=== PATIENT | male | born 1965 ===

== ENCOUNTER 2020-08-07 06:23 | Outpatient (REF) | payer MEDICARE, MEDICAID, SELFPAY ==
[2020-08-07 08:17] LABS: Alanine Aminotransferase 17 U/L (0-40); Albumin Level 4.2 g/dL (3.5-5.0); Alkaline Phosphatase 70 U/L (39-117); Anion Gap 13 (12-20); Aspartate Amino Transferase 16 U/L (5-37); Bilirubin Total 0.4 mg/dL (0.0-1.0); Blood Urea Nitrogen 13 mg/dL (9-16); Carbon Dioxide 29 mmol/L (22-29); Chloride 99 mmol/L (96-108); Cholesterol 130 mg/dL; Estimated Glomerular Filt Rate > 60; Glucose Random 147 mg/dL (60-115); HDL Cholesterol 38 mg/dL; LDL Cholesterol Calculated 72 mg/dl; Sodium 137 mmol/L (135-145); Total Protein 7.2 g/dL (6.5-8.0); Triglycerides 103 mg/dL
[2020-08-07 08:44] LABS: Microalbum/Creatinine Ratio Ur 13.9 ug/mg cr
== END 2020-08-07 06:24 | disposition home or self-care (01) ==
LOC: HO.LAB 06:23
PROVIDERS: PCP Internal Medicine; Visit Provider Nurse Practitioner Gerontology
DX: E11.65 Type 2 diabetes mellitus with hyperglycemia (principal); I10 Essential (primary) hypertension; E78.5 Hyperlipidemia, unspecified; E66.9 Obesity, unspecified
CPT/HCPCS: 80053; 80061; 82043; 99213

== ENCOUNTER → 2020-12-11 10:12 | Outpatient (BNVA) | payer MEDICARE, MEDICAID, SELFPAY | PROVIDERS: PCP Internal Medicine; Visit Provider Nurse Practitioner Gerontology | DX: Z13.89 Encounter for screening for other disorder (principal) | CPT/HCPCS: Q3014 ==

== ENCOUNTER 2021-03-08 06:41 | Outpatient (REF) | payer MEDICARE, MEDICAID, SELFPAY ==
[2021-03-08 08:09] LABS: Estimated Average Glucose 260 mg/dL; Hemoglobin A1c % 10.7 %
== END 2021-03-08 06:42 | disposition home or self-care (01) ==
LOC: HO.LAB 06:41
PROVIDERS: PCP Internal Medicine; Visit Provider Nurse Practitioner Gerontology
DX: E11.65 Type 2 diabetes mellitus with hyperglycemia (principal)
CPT/HCPCS: 36415; 83036

== ENCOUNTER → 2021-03-12 10:34 | Outpatient (BNVA) | payer MEDICARE, MEDICAID, SELFPAY | PROVIDERS: PCP Internal Medicine; Visit Provider Nurse Practitioner Gerontology | DX: E11.65 Type 2 diabetes mellitus with hyperglycemia (principal); I10 Essential (primary) hypertension; E78.5 Hyperlipidemia, unspecified; E66.9 Obesity, unspecified | CPT/HCPCS: 82947; 99212 ==

== ENCOUNTER → 2021-04-09 07:23 | Outpatient (BNVA) | payer MEDICARE, MEDICAID, SELFPAY | PROVIDERS: PCP Internal Medicine; Visit Provider Nurse Practitioner Gerontology | DX: E11.65 Type 2 diabetes mellitus with hyperglycemia (principal); I10 Essential (primary) hypertension; E78.5 Hyperlipidemia, unspecified; E66.9 Obesity, unspecified | CPT/HCPCS: 82947; 99212 ==

== ENCOUNTER 2021-06-24 10:29 | Outpatient (REF) | payer MEDICARE, MEDICAID, SELFPAY ==
--- NOTE | ~2021-06-24 | XR_ITS ---
EXAMINATION: XR CHEST CLINICAL INFORMATION: Dyspnea. COMPARISON: Most recent chest radiograph dated 07/18/2014. TECHNIQUE: 2 views of the chest were obtained. FINDINGS: Possible minimal patchy opacity within the right upper lobe. No pleural effusion or pneumothorax. Stable cardiomediastinal silhouette. No acute osseous abnormality. XR/XR chest 2V IMPRESSION: Possible minimal opacity within the right upper lobe which could represent atelectasis versus very early infiltrates.
== END 2021-06-24 10:30 | disposition home or self-care (01) ==
LOC: HO.XRAY 10:29
PROVIDERS: PCP Internal Medicine; Visit Provider Internal Medicine
DX: R06.00 Dyspnea, unspecified (principal)
CPT/HCPCS: 71046

== ENCOUNTER 2021-08-04 15:43 | Outpatient (REF) | payer MEDICARE, MEDICAID, SELFPAY ==
[2021-08-04 16:50] LABS: Hematocrit 38.9 % (42-52); Mean Corpuscular HGB Conc 33.4 g/dl (31.0-36.0); Mean Corpuscular Hemoglobin 28.2 pg (27.0-33.0); Mean Corpuscular Volume 84.4 fL (80-98); Mean Platelet Volume 10.9 fL (9.4-12.4); Platelet Count 327 X10*3/uL (160-400); Red Blood Count 4.61 X10*6/uL (4.60-5.80); Red Cell Distribution Width 14.5 % (11.0-16.0); White Blood Count 10.2 X10*3/uL (4.8-10.8)
[2021-08-04 16:58] LABS: Estimated Average Glucose 166 mg/dL; Hemoglobin A1c % 7.4 %
[2021-08-04 17:26] LABS: Alanine Aminotransferase 19 U/L (0-40); Albumin Level 4.4 g/dL (3.5-5.0); Alkaline Phosphatase 71 U/L (39-117); Anion Gap 14 (12-20); Aspartate Amino Transferase 17 U/L (5-37); Bilirubin Direct 0.2 mg/dL (0.0-0.5); Blood Urea Nitrogen 11 mg/dL (9-16); Calcium 9.7 mg/dL (8.4-10.2); Carbon Dioxide 27 mmol/L (22-29); Chloride 102 mmol/L (96-108); Cholesterol 151 mg/dL; Estimated Glomerular Filt Rate > 60; Glucose Random 132 mg/dL (60-115); HDL Cholesterol 36 mg/dL; LDL Cholesterol Calculated 89 mg/dl; Sodium 139 mmol/L (135-145); Total Protein 7.3 g/dL (6.5-8.0); Triglycerides 130 mg/dL
[2021-08-04 17:35] LABS: Bilirubin Total 0.5 mg/dL (0.0-1.0)
[2021-08-04 17:43] LABS: Thyroid Stimulating Hormone 0.51 uIU/mL (0.32-4.0)
[2021-08-04 18:55] LABS: Appearance Urine CLEAR; Color Urine YELLOW; Glucose Urine UA NEG (NEG); Leukocyte Esterase Urine NEG (NEG); Nitrite Urine NEG (NEG); PH 6.5 (5.0-8.0); Urine Blood NEG (NEG); Urine Ketones NEG (NEG); Urine Protein NEG (NEG-TRACE)
[2021-08-04 19:11] LABS: Creatinine Urine 102.96 mg/dL; Microalbum/Creatinine Ratio Ur 7.7 ug/mg cr
== END 2021-08-04 15:44 | disposition home or self-care (01) ==
LOC: HO.LAB 15:43
PROVIDERS: Visit Provider Internal Medicine
DX: E11.65 Type 2 diabetes mellitus with hyperglycemia (principal)
CPT/HCPCS: 36415; 80048; 80061; 80076; 81003; 82043; 83036; 84443; 85027

== ENCOUNTER → 2021-10-18 11:14 | Outpatient (BNVA) | payer MEDICARE, MEDICAID, SELFPAY | PROVIDERS: PCP Internal Medicine; Visit Provider Nurse Practitioner Gerontology | CPT/HCPCS: Q3014 ==

== ENCOUNTER 2022-01-12 13:59 | Outpatient (REF) | payer MEDICARE, MEDICAID, SELFPAY ==
[2022-01-12 15:20] LABS: Alanine Aminotransferase 24 U/L (0-40); Albumin Level 4.5 g/dL (3.5-5.0); Alkaline Phosphatase 74 U/L (39-117); Anion Gap 11 (12-20); Aspartate Amino Transferase 20 U/L (5-37); Bilirubin Total 0.7 mg/dL (0.0-1.0); Blood Urea Nitrogen 14 mg/dL (9-16); Calcium 10.3 mg/dL (8.4-10.2); Carbon Dioxide 33 mmol/L (22-29); Chloride 98 mmol/L (96-108); Cholesterol 142 mg/dL; Estimated Glomerular Filt Rate > 60; Glucose Fasting 132 mg/dL (60-99); HDL Cholesterol 35 mg/dL; LDL Cholesterol Calculated 83 mg/dl; Potassium 4.8 mmol/L (3.3-5.1); Sodium 137 mmol/L (135-145); Total Protein 7.7 g/dL (6.5-8.0); Triglycerides 121 mg/dL
[2022-01-12 15:42] LABS: Appearance Urine CLEAR; Color Urine YELLOW; Glucose Urine UA NEG (NEG); Leukocyte Esterase Urine NEG (NEG); Nitrite Urine NEG (NEG); Urine Blood NEG (NEG); Urine Ketones NEG (NEG); Urine Protein NEG (NEG-TRACE)
[2022-01-12 16:08] LABS: Creatinine Urine 70.71 mg/dL; Microalbumin Urine < 5.0 mg/L
[2022-01-13 19:37] LABS: LDL Cholesterol Direct 86 mg/dL (<100)
== END 2022-01-12 14:00 | disposition home or self-care (01) ==
LOC: HO.LAB 13:59
PROVIDERS: Absent Provider Internal Medicine; PCP Internal Medicine; Visit Provider Nurse Practitioner Gerontology
DX: E11.65 Type 2 diabetes mellitus with hyperglycemia (principal)
CPT/HCPCS: 36415; 80053; 80061; 81003; 82043; 83721

== ENCOUNTER → 2022-01-17 14:09 | Outpatient (BNVA) | payer MEDICARE, MEDICAID, SELFPAY | PROVIDERS: PCP Internal Medicine; Visit Provider Nurse Practitioner Gerontology | DX: E11.65 Type 2 diabetes mellitus with hyperglycemia (principal); I10 Essential (primary) hypertension; E78.5 Hyperlipidemia, unspecified; E66.9 Obesity, unspecified; Z68.32 Body mass index [BMI] 32.0-32.9, adult; Z79.4 Long term (current) use of insulin | CPT/HCPCS: 82947; 99212 ==

== ENCOUNTER → 2022-04-04 07:39 | Outpatient (BNVA) | payer MEDICARE, MEDICAID, SELFPAY | PROVIDERS: PCP Internal Medicine; Visit Provider Nurse Practitioner Gerontology | DX: E11.65 Type 2 diabetes mellitus with hyperglycemia (principal); E78.5 Hyperlipidemia, unspecified; E66.9 Obesity, unspecified; I10 Essential (primary) hypertension; Z68.32 Body mass index [BMI] 32.0-32.9, adult | CPT/HCPCS: 82947; 83036; 99212 ==

== ENCOUNTER 2022-11-01 13:11 | Outpatient (REF) | payer MEDICARE, MEDICAID, SELFPAY ==
[2022-11-01 14:50] LABS: MANUAL DIFF FLAG NO
[2022-11-01 15:26] LABS: Basophils Absolute Auto 0.1 X10*3/uL (0.0-0.2); Basophils Percent Auto 0.6 % (0-2); Eosinophils Absolute Auto 0.1 X10*3/uL (0.0-0.4); Eosinophils Percent Auto 0.4 % (0-4); Hemoglobin 14.5 g/dl (14.0-18.0); Imm Gran Abs Auto 0.03 X10*3/uL (0.00-0.03); Imm Gran Pct Auto 0.2 % (0.0-0.4); Lymphocytes Absolute Auto 3.4 X10*3/uL (1.2-4.9); Lymphocytes Percent Auto 25.5 % (20-40); Mean Corpuscular Hemoglobin 27.9 pg (27.0-33.0); Mean Corpuscular Volume 84.8 fL (80.0-98.0); Mean Platelet Volume 9.7 fL (9.4-12.4); Monocytes Absolute Auto 0.8 X10*3/uL (0.1-1.2); Monocytes Percent Auto 5.7 % (2-11); Neutrophils Absolute Auto 8.9 x10*3/uL (2.0-8.3); Neutrophils Percent Auto 67.6 % (45-73); Platelet Count 380 X10*3/uL (160-400); Red Blood Count 5.19 X10*6/uL (4.60-5.80); Red Cell Distribution Width 13.6 % (11.0-16.0); White Blood Count 13.2 X10*3/uL (4.8-10.8)
[2022-11-01 16:01] LABS: Erythrocyte Sedimentation Rate 8 MM/HR (0-15)
[2022-11-01 16:07] LABS: C Reactive Protein 0.13 mg/dL (< or = 0.50)
== END 2022-11-01 13:12 | disposition home or self-care (01) ==
LOC: HO.LAB 13:11
PROVIDERS: PCP Internal Medicine; Visit Provider Physician Assistant
DX: F41.9 Anxiety disorder, unspecified (principal); K21.9 Gastro-esophageal reflux disease without esophagitis; R19.5 Other fecal abnormalities
CPT/HCPCS: 36415; 82378; 85025; 85652; 86140; 99202

== ENCOUNTER 2022-11-28 09:18 | Day surgery (SDC) | payer MEDICARE, MEDICAID, SELFPAY ==
[2022-11-22 14:55] VITALS: BMI 30.6
[2022-11-28 09:46] LABS: Glucose, Whole Blood 138 mg/dL (60-115)
[2022-11-28] MEDS: Lactated Ringers 1,000 ML 50 ML IVCONT (09:58)
[2022-11-28 10:00] VITALS: BP 136/56; PULSE 78; RESP 18; TEMP 36.7; O2SAT 96
--- NOTE | 2022-11-28 10:15 | HO.ANESPROP2 ---
HPI - Anesthesia Eval Consult details Narrative: 57 yr old make for colon ca screen . [facility] Active Problems Active Problems: All Active Problems (Updated 11/22/22 @ 14:48 by Silva Carreno RN) Annual physical exam (Acute) Pneumonia (Acute) Dyspnea (Acute) Colon polyps (Acute) Positive colorectal cancer screening using Cologuard test (Acute) Anxiety (Acute) Obesity (BMI 30-39.9) (Acute) GERD (gastroesophageal reflux disease) (Acute) Major depression in partial remission (Acute) Postlaminectomy syndrome, not elsewhere classified (Acute) Type 2 diabetes mellitus with hyperglycemia (Acute) Essential hypertension (Acute) Hyperlipidemia LDL goal <100 (Acute) Obesity (BMI 30.0-34.9) (Acute) Past Medical History Medical History Arthritis of right knee Asthma Essential hypertension GERD (gastroesophageal reflux disease) Hyperlipidemia LDL goal <100 Major depression in partial remission Obesity (BMI 30-39.9) Obesity (BMI 30.0-34.9) Postlaminectomy syndrome, not elsewhere classified Type 2 diabetes mellitus with hyperglycemia Family History Family History Father Heart attack CVD (cardiovascular disease) Mother Diabetes mellitus HTN (hypertension) Maternal Grandmother Throat cancer Maternal Uncle Lung cancer Paternal Uncle Diabetes mellitus Paternal Aunt Diabetes mellitus Brother Substance use disorder Family history of problems with anesthesia: No Surgical History Surgical History History of back surgery History of Problems with Anesthesia: No Social History Social History Household Members: Spouse Housing: Apartment Alcohol intake: current Alcohol intake frequency: holidays/special occasions only Patient Tobacco Use Status: Former Tobacco user Quit Date: 12 years ago Cigarettes Per Day: 10 Years Smoked: 18 e-Cigarette/Vaping Use: Never Used Second Hand Smoke Exposure: No Substance Use Type: Marijuana Substance Use Frequency: Occasionally Are you DNR?: No Advance Directives: No Advance Directives Information Provided: Yes Nutrition Risks: No Nutritional Risk service: No Current occupational status: disabled Cognitive needs: Yes (cane) Hearing needs: No Vision needs: Yes (glasses) Meds Allergies Allergy/AdvReac Type Severity Reaction Status Date / Time dulaglutide [Trulicity] Allergy Intermediate injection Verified 11/28/22 09:56 site reaction canagliflozin [Invokana] AdvReac Intermediate sharp Verified 11/28/22 09:56 pains in low back semaglutide [From Rybelsus] AdvReac Intermediate Diarrhea Verified 11/28/22 09:56 tadalafil [From Cialis] AdvReac Mild upset Verified 11/28/22 09:56 stomach bee sting Allergy Severe Anaphylaxis Uncoded 11/28/22 09:56 Fruits Allergy Intermediate itchy mouth Uncoded 11/28/22 09:56 Active Medications: Current Medications Lactated Ringer's (Lr) 1,000 mls @ 50 mls/hr IVCONT .Q20H VITO Last Admin: 11/28/22 09:58 Dose: 50 mls/hr Home Medications Medication Instructions Recorded Confirmed Last Taken Type aspirin 81 mg tablet,delayed 81 mg PO DAILY 08/07/20 11/22/22 11/23/22 History release Exam Exam Date and Time: November 28, 2022 1015 Height,Weight and Vital Signs: Height 6 ft Weight 102.512 kg Last Vital Signs Temp 98.0 F 11/28/22 10:00 Pulse 78 11/28/22 10:00 Resp 18 11/28/22 10:00 BP 136/56 L 11/28/22 10:00 Pulse Ox 96 11/28/22 10:00 O2 Del Method 11/28/22 10:00 Pertinent Lab Results Pertinent Lab Results: Laboratory Tests 11/28/22 09:42 POC Glucose 138 H Airway Mallampati Class: III TM Dist: >3cm Neck ROM: Full Loose/Missing/Broken Teeth: Yes and Lower Heart: rrr Lungs: cta Assessment and Plan Assessment Anesthesia Assessment: Anesthesia Plan Discussed and Chart Reviewed Final Anesthetic Review Family History of Problems with Anesthesia: No History of Problems with Anesthesia: No NPO: Yes ASA Class: III Final Preanesthetic Review: No Changes in Pt Med Stat, Meds/Allgs Chart Reviewed, Consent Obtained/Reviewed and Anes Risks/Benef Reviewed Patient Risk: Intermediate Procedure Risk: Low Anesthetic Plan Anesthetic Plan: MAC: and Agree w/ Assess. and Plan Disposition: Standard PACU
--- NOTE | 2022-11-28 10:18 | MHC.SHP ---
Pre-Procedural Eval Section A Date of Service: 11/28/22 The History & Physical has been completed within 30 days and I have reviewed it.: Yes Section B Chief Complaint: POsitive cologuard Allergies: Allergies Allergy/AdvReac Type Severity Reaction Status Date / Time dulaglutide [Trulicity] Allergy Intermediate injection Verified 11/28/22 09:56 site reaction canagliflozin [Invokana] AdvReac Intermediate sharp Verified 11/28/22 09:56 pains in low back semaglutide [From Rybelsus] AdvReac Intermediate Diarrhea Verified 11/28/22 09:56 tadalafil [From Cialis] AdvReac Mild upset Verified 11/28/22 09:56 stomach bee sting Allergy Severe Anaphylaxis Uncoded 11/28/22 09:56 Fruits Allergy Intermediate itchy mouth Uncoded 11/28/22 09:56 Plan Diagnosis/Plan: Unchanged I have reviewed the history and physical and performed a pertinent physical examination on my patient. No changes have occurred unless specified. Time Spent With Patient Time: Total time managing care of this patient today ____ minutes.
--- NOTE | 2022-11-28 10:19 | P.OP_ITS ---
Operative Note Operative Note Date of Service: 11/28/22 Narrative: Procedure: Colonoscopy Indication: + FIT test Endoscopist: Patito Draper MD Anesthesia Provider: Dr Mylene Finney Anesthesia type: MAC Instrument: Olympus [id number]-[id number] Consent: Indication, risks vs benefits, and alternatives were discussed with the patient who gave written informed consent to proceed. EKG, pulse, pulse oximetry and blood pressure were monitored throughout the procedure. Please see anesthesia flowsheet. Procedure: The patient was brought to the procedure room and placed in the left lateral decubitus position. IV medications were administered by the anesthesia provider in attendance. A digital rectal exam was performed which was normal. The colonoscope was then inserted through the anus and advanced through the colon to the cecum at 75 cm,and terminal ileum. Mucosa was carefully examined under high definition white light as the instrument was slowly withdrawn in a retrograde panoramic fashion. Retroflexion was performed in ascending colon and rectum. The procedure was not difficult. There were no immediate obvious complications. The quality of the prep was BBPS: 3+3+3 = excellent Withdrawal time 13 minutes. Limitations: No limitations. Findings: Mucosa: Normal to cecum and terminal ileum. Protruding lesions: * 1 sessile polyp of size 5 mm in descending colon. Cold snare polypectomy was performed. The polyp was completely removed and retrieved. * 2 sessile polyp of size 2-3 mm in sigmoid colon. Cold snare polypectomy was performed. The polyps were completely removed and retrieved. * Medium internal hemorrhoids without stigmata of recent bleeding. Impression: 1. Normal colon and terminal ileum mucosa 2. Total of 3 polyps removed from descending, and sigmoid colon. 3. Internal hemorrhoids Recommendations: - Follow path results. - Repeat colonoscopy in 3 years if all polyps are adenoma otherwise 7 years.
[2022-11-28 11:01] VITALS: BP 87/38; PULSE 54; RESP 18; TEMP 36.1; O2SAT 99
[2022-11-28 11:16] VITALS: BP 107/49; PULSE 54; RESP 18; O2SAT 98
[2022-11-28 11:31] VITALS: BP 115/80; PULSE 68; RESP 18; TEMP 37.1; O2SAT 98
== END 2022-11-28 12:02 | disposition home or self-care (01) ==
PROVIDERS: PCP Internal Medicine; Visit Provider Internal Medicine
PROC: 0DJD8ZZ Inspection of Lower Intestinal Tract, Via Natural or Artificial Opening Endoscopic (ICD-10-PCS; CPT 45378; principal; 2022-11-28 10:40)
DX: R19.5 Other fecal abnormalities (principal); D12.4 Benign neoplasm of descending colon; D12.5 Benign neoplasm of sigmoid colon; K64.8 Other hemorrhoids; K21.9 Gastro-esophageal reflux disease without esophagitis; E78.5 Hyperlipidemia, unspecified; J45.909 Unspecified asthma, uncomplicated; F33.41 Major depressive disorder, recurrent, in partial remission; F41.9 Anxiety disorder, unspecified; I10 Essential (primary) hypertension; E66.9 Obesity, unspecified; Z68.30 Body mass index [BMI] 30.0-30.9, adult; E11.65 Type 2 diabetes mellitus with hyperglycemia; Z79.4 Long term (current) use of insulin; Z79.82 Long term (current) use of aspirin; Z79.899 Other long term (current) drug therapy; Z88.8 Allergy status to other drugs, medicaments and biological substances; Z87.891 Personal history of nicotine dependence
CPT/HCPCS: 45385; 82947; 88305

== ENCOUNTER 2023-05-04 08:50 | Outpatient (AMB) | payer MEDICARE, MEDICAID, SELFPAY ==
--- NOTE | 2023-05-04 08:53 | A.OFFPC_ITS ---
Vital Signs 05/04/23 08:55 Height 6 ft Weight 230 lb BMI 31.2 BP 122/70 Blood Pressure Location Lt brachial Position Sitting Pulse 62 Pulse Source Pulse Oximeter Pulse Oximetry (%) 97 Oxygen Delivery Method Room Air Intake Visit Reasons: 3 month f/u Intake Note: Patient is here to follow up on DM, HTN, Hyperlipidemia, . Size Tester Required: No Transfer Controller: Not Required per policy Accompanied by: Self / Same As Patient Allergies dulaglutide [Trulicity] Allergy (Intermediate, Verified 05/04/23 09:40) injection site reaction canagliflozin [Invokana] Adverse Reaction (Intermediate, Verified 05/04/23 09:40) sharp pains in low back semaglutide [From Rybelsus] Adverse Reaction (Intermediate, Verified 05/04/23 09:40) Diarrhea tadalafil [From Cialis] Adverse Reaction (Mild, Verified 05/04/23 09:40) upset stomach bee sting Allergy (Severe, Uncoded 05/04/23 09:40) Anaphylaxis Fruits Allergy (Intermediate, Uncoded 05/04/23 09:40) itchy mouth Medication List - Last Reconciled 05/04/23 by Shane Evans MD albuterol sulfate 90 mcg/actuation (Ventolin HFA) 2 puffs inhalation Q6H PRN 30 days aspirin 81 mg PO DAILY blood sugar diagnostic ([employer] Verio test strips) USE TO TEST BLOOD SUGAR 3 TIMES A DAY bupropion HCl 1 tab PO QAM buspirone 5 mg PO BID glipizide ER 10 mg (2 x 5 mg) PO DAILY insulin degludec (Tresiba FlexTouch U-100 insulin) 21 units subcut BEDTIME lancets ([employer] Delica Lancets) Three times a day lisinopril-hydrochlorothiazide 20-12.5 mg 2 tabs PO DAILY metformin ER 1,000 mg (2 x 500 mg) PO BID naproxen 500 mg PO BID omeprazole 20 mg PO QAM pen needle, diabetic (BD Ultra-Fine Glendy Pen Needle) As directed once daily simvastatin 40 mg PO DAILY trazodone 1 tab PO BEDTIME Tobacco use date assessed: 05/04/23 Dental Screening Dental Screen Date: 05/04/23 Did you have a dental visit in the last 12 months?: No Did you have a dental problem in the last 6 months where you did not have access to dental care?: No Was dental information given to patient?: No HPI 3 month f/u HPI Details 57-year-old male presents to the office to discuss his chronic medical conditions. Since last office visit, patient is feeling better. His blood sugars are better controlled. He would like to reduce the dosage on 1 of his medications. At times he has had lows. Exercising more. Continues to have right shoulder pain and would like to see an orthopedic surgeon. Also reporting persistent left elbow pain for the past month. No fall or injury. Complaining of itching in both ears for the past week. I asked him questions on his depression and anxiety. Patient admits that he still has anger issues and is scheduled for therapy in the fall. REPLACED BY [facility] Medical History Arthritis of right knee Asthma Essential hypertension GERD (gastroesophageal reflux disease) Hyperlipidemia LDL goal <100 Major depression in partial remission Obesity (BMI 30-39.9) Obesity (BMI 30.0-34.9) Postlaminectomy syndrome, not elsewhere classified Type 2 diabetes mellitus with hyperglycemia Surgical History History of back surgery Family History Father Heart attack CVD (cardiovascular disease) Mother Diabetes mellitus HTN (hypertension) Maternal Grandmother Throat cancer Maternal Uncle Lung cancer Paternal Uncle Diabetes mellitus Paternal Aunt Diabetes mellitus Brother Substance use disorder Social History Household Members: Spouse Housing: Apartment Alcohol intake: current Alcohol intake frequency: holidays/special occasions only Patient Tobacco Use Status: Former Tobacco user Quit Date: 12 years ago Cigarettes Per Day: 10 Years Smoked: 18 e-Cigarette/Vaping Use: Never Used Second Hand Smoke Exposure: No Substance Use Type: Marijuana service: No Current occupational status: disabled Cognitive needs: Yes (cane) Hearing needs: No Vision needs: Yes (glasses) Questionnaire Thrive Questionnaire Date Thrive assessed: 01/26/23 HEVER-7 AMB Questionnaire HEVER-7 Date HEVER - 7 assessed: 11/03/22 Source: Developed by Drs. Michael Lanza, Martina Robledo, Sahil Desai and colleagues, with an educational jamey from [employer]. Physical exam (Primary Care) Vital Signs: Last Vital Signs Pulse 62 05/04/23 08:55 BP 122/70 05/04/23 08:55 Pulse Ox 97 05/04/23 08:55 Oxygen Delivery Method Room Air 05/04/23 08:55 Care Plan Goal for BP management: Blood pressure in range. Continue current medications. BMI result Body Mass Index 31.2 BMI Assessment/Plan discussion: High (1 lb per week weight loss suggested.) BMI High, discussed plan: lifestyle, weight reduction and dietary Tobacco/Smoking Status: Tobacco use Status Tobacco use date assessed 05/04/23 05/04/23 09:02 Patient Tobacco Use Status Former Tobacco user 05/04/23 09:02 e-Cigarette/Vaping Use Never Used 05/04/23 09:02 Thrive Assessment: Date of Thrive Assessment Date Thrive assessed 01/26/23 05/04/23 09:02 Advance Care Planning discussion: Exists, not on file Forms completed: Health Care Proxy and MOLST Const General: cooperative, healthy appearing and comfortable HENMT Head: Yes normal to inspection and Yes atraumatic Eyes General: appearance normal, both eyes and all related structures Neck Neck: Yes normal visual inspection and Yes full ROM Chest Chest palpation & inspection: normal inspection of the chest Resp Effort & Inspection: normal respiratory effort Auscultation: clear to auscultation bilaterally Cardio Jugular venous distension: no JVD Palpation: normal PMI Rate: regular rate Heart sounds: S1 normal heart sound present and S2 normal heart sound present GI Palpation (GI): Soft to palpation and No hepatosplenomegaly present Extrem General: Yes normal to inspection and Yes full ROM Results AMB Hemoglobin A1c AMB Hemoglobin A1c 6.4 % Last Edit by ISA Meneses on 05/04/23 09:07 Results Reviewed Results Reviewed: Laboratory Last Values Hgb A1c (Clinic) 6.4 % (4.0-6.0) H 05/04/23 08:53 Assessment and Plan Assessment & Plan (1) Obesity (BMI 30-39.9): Code(s): E66.9 - Obesity, unspecified Plan: Counseling on the importance of diet and exercise done. (2) GERD (gastroesophageal reflux disease): Comment: No acid reflux is not taking a PPI. Code(s): K21.9 - Gastro-esophageal reflux disease without esophagitis Qualifiers: Esophagitis presence: without esophagitis Qualified Code(s): K21.9 - Gastro-esophageal reflux disease without esophagitis (3) Major depression in partial remission: Code(s): F32.4 - Major depressive disorder, single episode, in partial remission Qualifiers: Major depression recurrence: recurrent Qualified Code(s): F33.41 - Major depressive disorder, recurrent, in partial remission Plan: Condition is stable. Continue current treatment. (4) Essential hypertension: Code(s): I10 - Essential (primary) hypertension Plan: Blood pressure is in range. Continue medications. (5) Type 2 diabetes mellitus with hyperglycemia: Code(s): E11.65 - Type 2 diabetes mellitus with hyperglycemia Qualifiers: Diabetes mellitus terminal superintendent insulin use: without terminal superintendent use Qualified Code(s): E11.65 - Type 2 diabetes mellitus with hyperglycemia Plan: A1c is in range. I agreed that he should stop the sulfonylureas. (6) Sprain of right shoulder: Code(s): S43.401A - Unspecified sprain of right shoulder joint, initial encounter Plan: Patient is insisting on an orthopedic appointment. He does not want to go to physical therapy as it has not helped the past. Orders: Orders AMB Hemoglobin A1c Today E11.65 - Type 2 diabetes mellitus with hyperglycemia Referrals Orthopedics Referral S43.401A - Unspecified sprain of right shoulder joint, initial encounter Medications: New hydrocortisone 2.5% 1 appl topical BID PRN 20 grams 0RF skin irritation Discontinued glipizide ER Discontinued Reason: Doctor's Order 10 mg (2 x 5 mg) PO DAILY 60 tabs 7RF E11.65 - Type 2 diabetes mellitus with hyperglycemia Coding Level of Care Code Est Pt Level 4 (72857) Diagnoses Obesity (BMI 30-39.9) E66.9 GERD (gastroesophageal reflux disease) K21.9 Esophagitis presence: without esophagitis Major depression in partial remission F33.41 Major depression recurrence: recurrent Essential hypertension I10 Type 2 diabetes mellitus with hyperglycemia E11.65 Diabetes mellitus correction insulin use: without correction use Sprain of right shoulder S43.401A Additional Codes Vital Signs *Quality* - Advance Care Planning discussion: Exists, not on file ([id number])
[2023-05-04 08:55] VITALS: BP 122/70; PULSE 62; O2SAT 97; BMI 31.2
== END 2023-05-04 09:33 | disposition home or self-care (01) ==
PROVIDERS: Visit Provider Internal Medicine
DX: K21.9 Gastro-esophageal reflux disease without esophagitis (principal); F33.41 Major depressive disorder, recurrent, in partial remission; Z68.31 Body mass index [BMI] 31.0-31.9, adult; E66.9 Obesity, unspecified; I10 Essential (primary) hypertension; E11.65 Type 2 diabetes mellitus with hyperglycemia; S43.401A Unspecified sprain of right shoulder joint, initial encounter; Z71.89 Other specified counseling
CPT/HCPCS: 1123F; 83036; 99214

== ENCOUNTER 2023-05-11 08:25 | Outpatient (REF) | payer MEDICARE, MEDICAID, SELFPAY ==
--- NOTE | ~2023-05-11 | XR_ITS ---
EXAMINATION: XR SHOULDER, RIGHT CLINICAL INFORMATION: Pain. COMPARISON: None available. TECHNIQUE: Two views of the right shoulder. FINDINGS: There is no evidence of acute fracture or dislocation of the right shoulder. Right shoulder joint space is maintained with minimal spurring inferiorly. There is a 4 mm rounded density seen about the superior aspect of the humeral head which may be overlap of region of calcific tendinitis. There is degenerative narrowing with marginal spurring present about the right acromioclavicular joint. No widening of the coracoclavicular space is seen. XR/XR shoulder RT min 2V IMPRESSION: Possible calcific tendinitis of the right shoulder. Degenerative change of the right acromioclavicular joint.
== END 2023-05-11 08:26 | disposition home or self-care (01) ==
LOC: HO.HOSX 08:25
PROVIDERS: Visit Provider Orthopaedic Surgery
DX: M25.511 Pain in right shoulder (principal); M25.811 Other specified joint disorders, right shoulder; R20.0 Anesthesia of skin; Z79.899 Other long term (current) drug therapy
CPT/HCPCS: 73030; 99202

== ENCOUNTER 2023-05-11 12:46 | Outpatient (AMB) | payer MEDICARE, MEDICAID, SELFPAY ==
--- NOTE | 2023-05-11 13:01 | A.OFFVIS_ITS ---
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 extending from his left shoulder to his left hand. The patient states that his symptoms have gotten worse since he fell on ice 3 years ago. He has done physical therapy which aggravated his symptoms. He has also tried Tylenol and anti-inflammatory medici ondina which gave him minimal relief. He has had injections in the past which gave him no relief. The patient reports weakness when lifting his right hand above shoulder height. He states that at times all of the fingers on his left hand will go numb. The patient has difficulty sleeping because of his symptoms. Allergies dulaglutide [Trulicity] Allergy (Intermediate, Verified 05/04/23 09:40) injection site reaction canagliflozin [Invokana] Adverse Reaction (Intermediate, Verified 05/04/23 09:40) sharp pains in low back semaglutide [From Rybelsus] Adverse Reaction (Intermediate, Verified 05/04/23 09:40) Diarrhea tadalafil [From Cialis] Adverse Reaction (Mild, Verified 05/04/23 09:40) upset stomach bee sting Allergy (Severe, Uncoded 05/04/23 09:40) Anaphylaxis Fruits Allergy (Intermediate, Uncoded 05/04/23 09:40) itchy mouth Medication List - Last Reconciled 05/11/23 by Anjum Hunter MD albuterol sulfate 90 mcg/actuation (Ventolin HFA) 2 puffs inhalation Q6H PRN 30 days aspirin 81 mg PO DAILY blood sugar diagnostic ([employer] Verio test strips) USE TO TEST BLOOD SUGAR 3 TIMES A DAY bupropion HCl 1 tab PO QAM buspirone 5 mg PO BID hydrocortisone 2.5% 1 appl topical BID PRN insulin degludec (Tresiba FlexTouch U-100 insulin) 21 units subcut BEDTIME lancets (OneTouch Delica Lancets) Three times a day lisinopril-hydrochlorothiazide 20-12.5 mg 2 tabs PO DAILY metformin ER 1,000 mg (2 x 500 mg) PO BID naproxen 500 mg PO BID omeprazole 20 mg PO QAM pen needle, diabetic (BD Ultra-Fine Glendy Pen Needle) As directed once daily simvastatin 40 mg PO DAILY trazodone 1 tab PO BEDTIME [facility] Medical History Arthritis of right knee Asthma Essential hypertension GERD (gastroesophageal reflux disease) Hyperlipidemia LDL goal <100 Major depression in partial remission Obesity (BMI 30-39.9) Obesity (BMI 30.0-34.9) Postlaminectomy syndrome, not elsewhere classified Type 2 diabetes mellitus with hyperglycemia Surgical History History of back surgery Family History Father Heart attack CVD (cardiovascular disease) Mother Diabetes mellitus HTN (hypertension) Maternal Grandmother Throat cancer Maternal Uncle Lung cancer Paternal Uncle Diabetes mellitus Paternal Aunt Diabetes mellitus Brother Substance use disorder Social History Household Members: Spouse Housing: Apartment Alcohol intake: current Alcohol intake frequency: holidays/special occasions only Patient Tobacco Use Status: Former Tobacco user Quit Date: 12 years ago Cigarettes Per Day: 10 Years Smoked: 18 e-Cigarette/Vaping Use: Never Used Second Hand Smoke Exposure: No Substance Use Type: Marijuana service: No Current occupational status: disabled Cognitive needs: Yes (cane) Hearing needs: No Vision needs: Yes (glasses) Physical Exam Const Other: Well-nourished well-developed very friendly male awake alert and oriented x3 in no acute distress Extrem Other: Bilateral upper extremity examination shows good capillary refill, no skin lesions noted Left upper extremity examination shows mild thenar muscle wasting, decreased sensation light touch along his median nerve distribution, positive Tinel's test over his carpal tunnel Right shoulder examination shows decreased range of motion when compared to his left shoulder, 4/5 strength with supraspinatus testing, positive impingement signs, tenderness over his acromioclavicular joint, no instability Results Reviewed Results Reviewed: X-rays of the patient's right shoulder taken today show severe acromioclavicular joint narrowing, a type 2 acromion, no acute bony abnormalities Assessment & Plan Assessment & Plan (1) Impingement of right shoulder: Code(s): M25.811 - Other specified joint disorders, right shoulder Plan: Mr. Steiner presents with progressively worsening right shoulder pain and weakness due to impingement syndrome, acromioclavicular joint arthritis and possible full-thickness rotator cuff tearing. Thus, I will send him for an MRI of his right shoulder for further evaluation. If he does have a full-thickness rotator cuff tear I will recommend surgical repair to optimize is future functional level. I will also get an EMG evaluation of his left upper extremity to help rule out carpal tunnel syndrome or cervical neuropathy. I will see the patient back once the studies are completed. Feel free to call me at any time should questions regarding his orthopedic management arise. Thank you very much for asking me to see this very friendly gentleman. I spent 22 minutes in reviewing the patient's records and imaging studies, seeing the patient and documenting in the medical record. Orders: Orders XR shoulder RT min 2V Today M25.511 - Pain in right shoulder MR shoulder RT wo con Today M25.519 - Pain in unspecified shoulder NE electromyogram (EMG) Today R20.0 - Anesthesia of skin Quality Reporting (2020) Adult ([facility] 138/12/07/68) Smoking risk assessment performed?: Yes Patient Tobacco Use Status: Former Tobacco user Coding Level of Care Code New Pt Level 2 (44033) Diagnoses Impingement of right shoulder M25.811
[2023-05-11 13:10] VITALS: BMI 31.2
== END 2023-05-11 13:31 | disposition home or self-care (01) ==
PROVIDERS: PCP Internal Medicine; Visit Provider Orthopaedic Surgery
DX: M25.811 Other specified joint disorders, right shoulder (principal)
CPT/HCPCS: 99202

== ENCOUNTER 2023-10-04 10:06 | Outpatient (AMB) | payer MEDICARE, MEDICAID, SELFPAY ==
--- NOTE | 2023-10-04 10:54 | MHC.OFFWIV ---
Intake Vital Signs 10/04/23 10:55 Height 6 ft Weight 228 lb 4 oz BMI 31.0 BP 122/70 Blood Pressure Location Rt brachial Position Sitting Pulse 70 Pulse Source Pulse Oximeter Temp 97.8 F Temp Source Temporal Artery Scan Pulse Oximetry (%) 98 Oxygen Delivery Method Room Air Intake Visit Reasons: EST/right forearm pain (lobby) Intake Note: Pt is here c/o right forearm pain. Pt states he did fall 11 months ago and hurt his forearm but didn't think much of it. Pt states he is now in a lot of pain if he moves his forearm in certain positions. Patient Tobacco Use Status: Former Tobacco user Quit Date: 12 years ago Allergies dulaglutide [Trulicity] Allergy (Intermediate, Verified 10/04/23 10:54) injection site reaction canagliflozin [Invokana] Adverse Reaction (Intermediate, Verified 10/04/23 10:54) sharp pains in low back semaglutide [From Rybelsus] Adverse Reaction (Intermediate, Verified 10/04/23 10:54) Diarrhea tadalafil [From Cialis] Adverse Reaction (Mild, Verified 10/04/23 10:54) upset stomach bee sting Allergy (Severe, Uncoded 10/04/23 10:54) Anaphylaxis Fruits Allergy (Intermediate, Uncoded 10/04/23 10:54) itchy mouth Do you need a note to return to daycare/school/sports/work: No HPI HPI Comments History of Present Illness Details Patient is a 58-year-old male in today for a sick visit. He rides the chief complaint of right elbow and forearm pain that has gotten progressively worse over the past couple months. He states that he did have a fall 11 months ago, but that the pain subsided and he did not get an x-ray. Over the past couple of months he has noticed that his elbow and forearm pain has increased to the point where he feels like he has difficulty taking care of his sister who is wheelchair bound. He has used naproxen with some relief. Denies any numbness tingling to the area. Will obtain x-ray of the right forearm and elbow. Patient has +2 pulses throughout. This injury is unlikely to be a threat to the limb. This is unlikely to be a neurovascular compromise or a venous or arterial occlusion. [facility] Medical History Arthritis of right knee Asthma Essential hypertension GERD (gastroesophageal reflux disease) Hyperlipidemia LDL goal <100 Major depression in partial remission Obesity (BMI 30-39.9) Obesity (BMI 30.0-34.9) Postlaminectomy syndrome, not elsewhere classified Type 2 diabetes mellitus with hyperglycemia Surgical History History of back surgery Family History Father Heart attack CVD (cardiovascular disease) Mother Diabetes mellitus HTN (hypertension) Maternal Grandmother Throat cancer Maternal Uncle Lung cancer Paternal Uncle Diabetes mellitus Paternal Aunt Diabetes mellitus Brother Substance use disorder Social History Household Members: Spouse Housing: Apartment Alcohol intake: current Alcohol intake frequency: holidays/special occasions only Patient Tobacco Use Status: Former Tobacco user Quit Date: 12 years ago Cigarettes Per Day: 10 Years Smoked: 18 e-Cigarette/Vaping Use: Never Used Second Hand Smoke Exposure: No Substance Use Type: Marijuana service: No Current occupational status: disabled Cognitive needs: Yes (cane) Hearing needs: No Vision needs: Yes (glasses) Review of Systems Const Details: Constitutional : No Weight loss, No Fever, No Chills, No Fatigue, No Malaise Cardiovascular : No Chest Pain, No SOB, No Dyspnea on Exertion, No Orthopnea, No Edema, No Palpitations Respiratory : No Cough, No Sputum, No Wheezing Gastrointestinal : No Nausea, No Vomiting, No Diarrhea, No Constipation, No abdominal Pain, No Hematochezia, No Melena Musculoskeletal : Admits right elbow and forearm pain. Skin : No Skin Lesions, No rash Neuro : No Weakness, No Numbness, No Dizziness, No Headache All other systems reviewed and are negative Physical Exam Vital Signs: Last Vital Signs Temp 97.8 F 10/04/23 10:55 Pulse 70 10/04/23 10:55 BP 122/70 10/04/23 10:55 Pulse Ox 98 10/04/23 10:55 Oxygen Delivery Method Room Air 10/04/23 10:55 BMI result Body Mass Index 31.0 Vital signs have been reviewed and are stable Const Other: Appearance: Alert.? Oriented X3.? No acute distress.? CVS: Normal heart rate and rhythm.? Pulses normal.? Respiratory: No respiratory distress.? Breath sounds normal.? Skin: Skin warm and dry.? Normal skin color.? Normal skin turgor.? Extremities: Positive beth test. No obvious deformity. No cracking or crepitus. Patient has full range of motion. Point tenderness to right elbow. Neuro: Oriented X 3.? No motor deficit.? No sensory deficit. CN 2-12 intact Results Reviewed Results Reviewed: Patient had in office x-ray. Will get back to patient with results. Assessment & Plan Assessment & Plan (1) Lateral epicondylitis of right elbow: Comment: Patient will be given meloxicam to be taken as directed. He has been educated on the side effects of these medications. He will also be instructed to use an elbow brace for support during day to be taken off at night. He has been educated on signs of worsening symptoms when to return to the walk-in or when to present to the emergency room. Patient should follow-up with PCP. Code(s): M77.11 - Lateral epicondylitis, right elbow Plan: Take your medications as prescribed. If you were prescribed antibiotics today, it is important that you take your medication to their entirety, do not skip any doses, do not finish them early. Follow-up with your primary care provider this week. Return to the emergency department with new or worsening symptoms. Such as fevers, chills, chest pain, shortness of breath, nausea, vomiting, dizziness, headache, vision changes, lethargy In case of emergency call 911 Coding Level of Care Code Est Pt Level 3 (66109) Diagnoses Lateral epicondylitis of right elbow M77.11 Time Spent (min) 15
[2023-10-04 10:55] VITALS: BP 122/70; PULSE 70; TEMP 36.6; O2SAT 98; BMI 31.0
== END 2023-10-04 13:25 | disposition home or self-care (01) ==
PROVIDERS: PCP Internal Medicine; Visit Provider Nurse Practitioner Primary Care
DX: M77.11 Lateral epicondylitis, right elbow (principal)
CPT/HCPCS: 99213

== ENCOUNTER 2023-10-04 11:43 | Outpatient (REF) | payer MEDICARE, MEDICAID, SELFPAY ==
--- NOTE | ~2023-10-04 | XR_ITS ---
EXAMINATION: XR ELBOW, RIGHT. R FOREARM, RIGHT. CLINICAL INFORMATION: Pain COMPARISON: None. TECHNIQUE: 3 views of the right elbow. AP and lateral views of the right forearm. FINDINGS: No fracture or malalignment of the elbow. No joint effusion. Enthesopathy is noted of the olecranon at the triceps insertion, as well as the common flexor and common extensor tendon origins. No fracture of the right forearm. No radiopaque foreign body. Prominent fat density of the anterior forearm muscles proximally. XR/XR elbow RT 2V IMPRESSION: 1. No acute osseous abnormality of the right elbow or right forearm. No elbow joint effusion. 2. Enthesopathy of the olecranon, common flexor, and common extensor tendons. 3. Low density in the region of the anterior forearm muscles. Cannot exclude a fatty mass. Consider further evaluation with MRI if indicated.
--- NOTE | ~2023-10-04 | XR_ITS ---
EXAMINATION: XR ELBOW, RIGHT. R FOREARM, RIGHT. CLINICAL INFORMATION: Pain COMPARISON: None. TECHNIQUE: 3 views of the right elbow. AP and lateral views of the right forearm. FINDINGS: No fracture or malalignment of the elbow. No joint effusion. Enthesopathy is noted of the olecranon at the triceps insertion, as well as the common flexor and common extensor tendon origins. No fracture of the right forearm. No radiopaque foreign body. Prominent fat density of the anterior forearm muscles proximally. XR/XR forearm RT 2V IMPRESSION: 1. No acute osseous abnormality of the right elbow or right forearm. No elbow joint effusion. 2. Enthesopathy of the olecranon, common flexor, and common extensor tendons. 3. Low density in the region of the anterior forearm muscles. Cannot exclude a fatty mass. Consider further evaluation with MRI if indicated.
== END 2023-10-04 11:44 | disposition home or self-care (01) ==
LOC: HO.HMGCX 11:43
PROVIDERS: PCP Nurse Practitioner Primary Care; Visit Provider Internal Medicine
DX: M79.601 Pain in right arm (principal)
CPT/HCPCS: 73070; 73090

== ENCOUNTER 2023-11-09 08:13 | Outpatient (AMB) | payer MEDICARE, MEDICAID, SELFPAY ==
--- NOTE | 2023-11-09 08:47 | A.OFFPC_ITS ---
Vital Signs 11/09/23 08:50 Height 6 ft Weight 221 lb 4 oz BMI 30.0 BP 120/72 Blood Pressure Location Lt brachial Position Sitting Pulse 62 Pulse Source Pulse Oximeter Pulse Oximetry (%) 96 Oxygen Delivery Method Room Air Intake Visit Reasons: 6mth f/u Intake Note: Patient is here to follow up on DM, GERD, HTN. Manager Export Required: No Check Writing Machine Operator: Not Required per policy Accompanied by: Self / Same As Patient Allergies dulaglutide [Trulicity] Allergy (Intermediate, Verified 11/09/23 09:41) injection site reaction canagliflozin [Invokana] Adverse Reaction (Intermediate, Verified 11/09/23 09:41) sharp pains in low back semaglutide [From Rybelsus] Adverse Reaction (Intermediate, Verified 11/09/23 09:41) Diarrhea tadalafil [From Cialis] Adverse Reaction (Mild, Verified 11/09/23 09:41) upset stomach bee sting Allergy (Severe, Uncoded 11/09/23 09:41) Anaphylaxis Fruits Allergy (Intermediate, Uncoded 11/09/23 09:41) itchy mouth Medication List - Last Reconciled 11/09/23 by Shane Evans MD albuterol sulfate 90 mcg/actuation (Ventolin HFA) 2 puffs inhalation Q6H PRN 30 days aspirin 81 mg PO DAILY blood sugar diagnostic (imeemuch Verio test strips) USE TO TEST BLOOD SUGAR 3 TIMES A DAY hydrocortisone 2.5% 1 appl topical BID PRN insulin degludec (Tresiba FlexTouch U-100 insulin) 21 units (0.21 mL) subcut BEDTIME lancets (Query HunterTouch Delica Lancets) Three times a day lisinopril-hydrochlorothiazide 20-12.5 mg 2 tabs PO DAILY metformin ER 1,000 mg (2 x 500 mg) PO BID naproxen 500 mg PO BID omeprazole 20 mg PO QAM pen needle, diabetic (BD Ultra-Fine Glendy Pen Needle) As directed once daily simvastatin 40 mg PO DAILY Tobacco use date assessed: 11/09/23 Dental Screening Dental Screen Date: 11/09/23 Did you have a dental visit in the last 12 months?: No Did you have a dental problem in the last 6 months where you did not have access to dental care?: No Was dental information given to patient?: No HPI 6mth f/u HPI Details 58-year-old male presents to the office to discuss his chronic medical conditions. Patient reports he is doing well emotionally. Continues to see his therapist weekly. He completed a course in anger management which has helped him immensely. Due to the recent holiday season, patient has not been following a good diet. His blood sugars have been elevated. Continues to take the medications as directed. Does have intermittent pains in his joints and requests a refill on Naprosyn. Uses the medication intermittently. COUNT INCLUDES THE [facility] Medical History Obesity (BMI 30-39.9) GERD (gastroesophageal reflux disease) Major depression in partial remission Postlaminectomy syndrome, not elsewhere classified Asthma Arthritis of right knee Type 2 diabetes mellitus with hyperglycemia Essential hypertension Hyperlipidemia LDL goal <100 Obesity (BMI 30.0-34.9) Surgical History History of back surgery Family History Father Heart attack CVD (cardiovascular disease) Mother Diabetes mellitus HTN (hypertension) Maternal Grandmother Throat cancer Maternal Uncle Lung cancer Paternal Uncle Diabetes mellitus Paternal Aunt Diabetes mellitus Brother Substance use disorder Social History Household Members: Spouse Housing: Apartment Alcohol intake: current Alcohol intake frequency: holidays/special occasions only Patient Tobacco Use Status: Former Tobacco user Quit Date: 12 years ago Cigarettes Per Day: 10 Years Smoked: 18 e-Cigarette/Vaping Use: Never Used Second Hand Smoke Exposure: No Substance Use Type: Marijuana service: No Current occupational status: disabled Cognitive needs: Yes (cane) Hearing needs: No Vision needs: Yes (glasses) Questionnaire PHQ-9 Over the last 2 weeks, how often have you been bothered by any of the following problems? 1. Little interest or pleasure in doing things: not at all 2. Feeling down, depressed, or hopeless: nearly every day 3. Trouble falling or staying asleep, or sleeping too much: several days 4. Feeling tired or having little energy: several days 5. Poor appetite or overeating: not at all 6. Feeling bad about yourself - or that you are a failure or have let yourself or your family down: not at all 7. Trouble concentrating on things, such as reading the newspaper or watching television: several days 8. Moving or speaking so slowly that other people could have noticed. Or the opposite - being so fidgety or restless that you have been moving around a lot more than usual: not at all 9. Thoughts that you would be better off or of hurting yourself in some way: not at all Total score: 6 Source: Developed by Drs. Michael Lanza, Martina Robledo, Sahil Desai and colleagues, with an educational jamey from [employer]. Thrive Questionnaire Date Thrive assessed: 11/09/23 I am a: Patient What is your living situation today?: I have a steady place to live Within the past 12 months, did the food you bought not last and you didn't have the money to get more?: Never true Within the past 12 months, did you worry whether your food would run out before you got money to buy more?: Never true Do you have trouble paying for medicines?: No Do you have trouble getting transportation to medical appointments?: No Do you have trouble paying your heating and electricity bill?: No Do you have trouble taking care of your child, family member or friend?: No Do you have trouble with day-to-day activities such as bathing, preparing meals, shopping, managing finances, etc.?: No Are you currently unemployed and looking for a job?: No Are you interested in more education?: No Currently or been in a relationship where the following occur: no concerns reported THRIVE Score: 0 AUDIT C Alcohol Use Questionnaire (AUDIT-C) 1. How often do you have a drink containing alcohol?: Never 2. How many drinks containing alcohol do you have on a typical day when you are drinking?: 1 or 2 Total Score: 0 HEVER-7 AMB Questionnaire HEVER-7 Date HEVER - 7 assessed: 11/09/23 Feeling nervous, anxious, or on edge: 3 = Nearly every day Not being able to stop or control worryin = Nearly every day Worrying too much about different things: 3 = Nearly every day Trouble relaxin = More than half the days Being so restless that it is hard to sit still: 3 = Nearly every day Becoming easily annoyed or irritable: 1 = Several days Feeling afraid as if something awful might happen: 2 = More than half the days Total HEVER-7 score (0-4 normal; 5-9 mild; 10-14 moderate; 15-21 severe): 17 Source: Developed by Drs. Michael Lanza, Martina Robledo, Sahil Desai and colleagues, with an educational jamey from [employer]. Physical exam (Primary Care) Vital Signs: Last Vital Signs Pulse 62 11/09/23 08:50 BP 120/72 11/09/23 08:50 Pulse Ox 96 11/09/23 08:50 Oxygen Delivery Method Room Air 11/09/23 08:50 BMI result Body Mass Index 30.0 Tobacco/Smoking Status: Tobacco use Status Tobacco use date assessed 11/09/23 11/09/23 09:12 Patient Tobacco Use Status Former Tobacco user 11/09/23 09:12 e-Cigarette/Vaping Use Never Used 11/09/23 09:12 PHQ-9: PHQ-9 Score PHQ-9: Total score 6 11/09/23 09:12 Thrive Assessment: Date of Thrive Assessment Date Thrive assessed 11/09/23 11/09/23 09:12 Currently or been in a relationship where the following occur: no concerns reported Const General: cooperative and healthy appearing Nutritional Appearance: well nourished Orientation/consciousness: patient oriented x3 Limitations: no limitations HENMT Head: Yes normal to inspection Eyes General: appearance normal, both eyes and all related structures Neck Neck: Yes normal visual inspection Chest Chest palpation & inspection: normal palpation of entire chest wall Resp Effort & Inspection: normal respiratory effort Neuro General: patient oriented x3 Results AMB Hemoglobin A1c AMB Hemoglobin A1c 7.4 % Last Edit by ISA Meneses on 11/09/23 09:13 Results Reviewed Results Reviewed: Laboratory Last Values Hgb A1c (Clinic) 7.4 % (4.0-6.0) H 11/09/23 08:46 Assessment and Plan Assessment & Plan (1) Anxiety: Comment: Extreme anxiety Detailed discussion-emotional support offered Code(s): F41.9 - Anxiety disorder, unspecified Plan: Continue medications at same dosage. Patient was advised to continue therapy. (2) Major depression in partial remission: Code(s): F32.4 - Major depressive disorder, single episode, in partial remission Qualifiers: Major depression recurrence: recurrent Qualified Code(s): F33.41 - Major depressive disorder, recurrent, in partial remission Plan: As above. (3) Type 2 diabetes mellitus with hyperglycemia: Code(s): E11.65 - Type 2 diabetes mellitus with hyperglycemia Qualifiers: Diabetes mellitus senior living insulin use: without terminal press operator use Qualified Code(s): E11.65 - Type 2 diabetes mellitus with hyperglycemia Plan: A1c was 7.4. He does not want to increase any of his medications. Patient promises to eat better. Orders: Orders AMB Hemoglobin A1c Today E11.65 - Type 2 diabetes mellitus with hyperglycemia Medications: Resumed naproxen 500 mg PO BID 30 tabs 0RF Coding Level of Care Code Est Pt Level 4 (23465) Diagnoses Anxiety F41.9 Recurrent major depressive disorder, in partial remission F33.41 Major depression recurrence: recurrent Type 2 diabetes mellitus with hyperglycemia, without long-term current use of i nsulin E11.65 Diabetes mellitus senior living insulin use: without terminal press operator use
[2023-11-09 08:50] VITALS: BP 120/72; PULSE 62; O2SAT 96
== END 2023-11-09 09:41 | disposition home or self-care (01) ==
LOC: HO.HMGH 08:13
PROVIDERS: PCP Internal Medicine; Visit Provider Internal Medicine
DX: F41.9 Anxiety disorder, unspecified (principal); F33.41 Major depressive disorder, recurrent, in partial remission; E11.65 Type 2 diabetes mellitus with hyperglycemia
CPT/HCPCS: 83036; 99214

== ENCOUNTER 2023-11-09 10:13 | Outpatient (REF) | payer MEDICARE, MEDICAID, SELFPAY ==
[2023-11-09 10:55] LABS: Hematocrit 42.5 % (42.0-52.0); Hemoglobin 14.2 g/dl (14.0-18.0); Mean Corpuscular HGB Conc 33.4 g/dl (31.0-36.0); Mean Corpuscular Hemoglobin 28.8 pg (27.0-33.0); Mean Corpuscular Volume 86.2 fL (80.0-98.0); Mean Platelet Volume 9.7 fL (9.4-12.4); Platelet Count 308 X10*3/uL (160-400); Red Blood Count 4.93 X10*6/uL (4.60-5.80); Red Cell Distribution Width 13.5 % (11.0-16.0); White Blood Count 8.9 X10*3/uL (4.8-10.8)
[2023-11-09 11:18] LABS: Appearance Urine Clear; Color Urine Yellow; Glucose Urine UA Negative (Negative); Leukocyte Esterase Urine Negative (Negative); Nitrite Urine Negative (Negative); Specific Gravity - Urine 1.025 (1.005-1.025); Urine Blood Negative (Negative); Urine Ketones Negative (Negative); Urine Protein Negative (Neg-Trace)
[2023-11-09 11:51] LABS: Alanine Aminotransferase 22 U/L (0-40); Albumin Level 4.1 g/dL (3.5-5.0); Alkaline Phosphatase 79 U/L (39-117); Aspartate Amino Transferase 23 U/L (5-37); Bilirubin Direct 0.3 mg/dL (0.0-0.5); Bilirubin Total 0.7 mg/dL (0.0-1.0); Cholesterol 119 mg/dL (<200); HDL Cholesterol 38 mg/dL (>40); LDL Cholesterol Calculated 66 mg/dL (<100); Total Protein 7.3 g/dL (6.5-8.0); Triglycerides 76 mg/dL (<150)
[2023-11-09 11:52] LABS: Thyroid Stimulating Hormone 0.38 uIU/mL (0.32-4.0)
[2023-11-09 11:56] LABS: Creatinine Urine 242.47 mg/dL
== END 2023-11-09 10:14 | disposition home or self-care (01) ==
LOC: HO.LAB 10:13
PROVIDERS: PCP Internal Medicine; Visit Provider Internal Medicine
DX: F32.4 Major depressive disorder, single episode, in partial remission (principal); E66.9 Obesity, unspecified; E11.65 Type 2 diabetes mellitus with hyperglycemia
CPT/HCPCS: 36415; 80061; 80076; 81003; 82043; 82570; 84443; 85027

== ENCOUNTER 2024-01-04 08:16 | Outpatient (AMB) | payer MEDICARE, MEDICAID, SELFPAY ==
--- NOTE | 2024-01-04 08:32 | A.OFFPC_ITS ---
Vital Signs 01/04/24 08:33 Height 6 ft Weight 227 lb 4 oz BMI 30.8 BP 130/80 Blood Pressure Location Lt brachial Position Sitting Pulse 54 Pulse Source Pulse Oximeter Pulse Oximetry (%) 98 Oxygen Delivery Method Room Air Intake Visit Reasons: Right forearm pain/ Referral Intake Note: Patient is here to follow up on right forearm pain. Requesting for referral for ortho. Patternmaker Metal Bench Required: No Parts Driver: Not Required per policy Accompanied by: Self / Same As Patient Allergies dulaglutide [Trulicity] Allergy (Intermediate, Verified 01/04/24 09:08) injection site reaction canagliflozin [Invokana] Adverse Reaction (Intermediate, Verified 01/04/24 09:08) sharp pains in low back semaglutide [From Rybelsus] Adverse Reaction (Intermediate, Verified 01/04/24 09:08) Diarrhea tadalafil [From Cialis] Adverse Reaction (Mild, Verified 01/04/24 09:08) upset stomach bee sting Allergy (Severe, Uncoded 01/04/24 09:08) Anaphylaxis Fruits Allergy (Intermediate, Uncoded 01/04/24 09:08) itchy mouth Medication List - Last Reconciled 01/04/24 by Shane Evans MD albuterol sulfate 90 mcg/actuation (Ventolin HFA) 2 puffs inhalation Q6H PRN 30 days aspirin 81 mg PO DAILY blood sugar diagnostic (A&E Complete Home ServicesTouch Verio test strips) USE TO TEST BLOOD SUGAR 3 TIMES A DAY hydrocortisone 2.5% 1 appl topical BID PRN insulin degludec (Tresiba FlexTouch U-100 insulin) 21 units (0.21 mL) subcut BEDTIME lancets (A&E Complete Home ServicesTouch Delica Lancets) Three times a day lisinopril-hydrochlorothiazide 20-12.5 mg 2 tabs PO DAILY metformin ER 1,000 mg (2 x 500 mg) PO BID naproxen 500 mg PO BID omeprazole 20 mg PO QAM pen needle, diabetic (BD Ultra-Fine Glendy Pen Needle) As directed once daily simvastatin 40 mg PO DAILY Tobacco use date assessed: 01/04/24 HPI Right forearm pain/ Referral HPI Details 58-year-old male presents to the office for a sick visit. Patient is reporting pain in the right arm and forearm for many months. He is very frustrated with the lack of progress. Symptoms started after he had a fall. X- rays were negative. Continues to have right shoulder pain and forearm pain. Pain is worse when he rotates the forearm. Lifting a heavy jug of milk can start or trigger the pain. He feels he is losing muscular strength in the forearm. [facility] Medical History Obesity (BMI 30-39.9) GERD (gastroesophageal reflux disease) Major depression in partial remission Postlaminectomy syndrome, not elsewhere classified Asthma Arthritis of right knee Type 2 diabetes mellitus with hyperglycemia Essential hypertension Hyperlipidemia LDL goal <100 Obesity (BMI 30.0-34.9) Surgical History History of back surgery Family History Father Heart attack CVD (cardiovascular disease) Mother Diabetes mellitus HTN (hypertension) Maternal Grandmother Throat cancer Maternal Uncle Lung cancer Paternal Uncle Diabetes mellitus Paternal Aunt Diabetes mellitus Brother Substance use disorder Social History Household Members: Spouse Housing: Apartment Alcohol intake: current Alcohol intake frequency: holidays/special occasions only Patient Tobacco Use Status: Former Tobacco user Quit Date: 12 years ago Cigarettes Per Day: 10 Years Smoked: 18 e-Cigarette/Vaping Use: Never Used Second Hand Smoke Exposure: No Substance Use Type: Marijuana service: No Current occupational status: disabled Cognitive needs: Yes (cane) Hearing needs: No Vision needs: Yes (glasses) Questionnaire Thrive Questionnaire Date Thrive assessed: 11/09/23 HEVER-7 AMB Questionnaire HEVER-7 Date HEVER - 7 assessed: 11/09/23 Source: Developed by Drs. Michael Lanza, Martina Robledo, Sahil Desai and colleagues, with an educational jamey from [employer]. Physical exam (Primary Care) Vital Signs: Last Vital Signs Pulse 54 01/04/24 08:33 BP 130/80 01/04/24 08:33 Pulse Ox 98 01/04/24 08:33 Oxygen Delivery Method Room Air 01/04/24 08:33 BMI result Body Mass Index 30.8 Tobacco/Smoking Status: Tobacco use Status Tobacco use date assessed 01/04/24 01/04/24 08:38 Patient Tobacco Use Status Former Tobacco user 01/04/24 08:38 e-Cigarette/Vaping Use Never Used 01/04/24 08:38 Thrive Assessment: Date of Thrive Assessment Date Thrive assessed 11/09/23 01/04/24 08:38 Extrem Other: Right forearm: Discomfort near the elbow joint on supination. Dull pain at the lateral epicondyle. Assessment and Plan Assessment & Plan (1) Lateral epicondylitis of right elbow: Comment: Patient will be given meloxicam to be taken as directed. He has been educated on the side effects of these medications. Code(s): M77.11 - Lateral epicondylitis, right elbow Plan: Patient reports that he has not had much relief from meloxicam or the brace. An orthopedic referral has been made. At patient's request he was referred to the orthopedic surgeons in [place]. Orders: Referrals Orthopedics Referral M77.11 - Lateral epicondylitis, right elbow Medications: Refilled naproxen 500 mg PO BID 30 tabs 0RF Coding Level of Care Code Est Pt Level 4 (83739) Diagnoses Lateral epicondylitis of right elbow M77.11
[2024-01-04 08:33] VITALS: BP 130/80; PULSE 54; O2SAT 98; BMI 30.8
== END 2024-01-04 11:56 | disposition home or self-care (01) ==
PROVIDERS: PCP Internal Medicine; Visit Provider Internal Medicine
DX: M77.11 Lateral epicondylitis, right elbow (principal)
CPT/HCPCS: 99214

== ENCOUNTER 2024-02-22 09:40 | Outpatient (AMB) | payer MEDICARE, MEDICAID, SELFPAY ==
--- NOTE | 2024-02-22 09:58 | MHC.PC.OV ---
Vital Signs 02/22/24 09:59 Height 6 ft Weight 220 lb 4 oz BMI 29.9 BP 114/70 Blood Pressure Location Lt brachial Position Sitting Pulse 66 Pulse Source Pulse Oximeter Pulse Oximetry (%) 96 Oxygen Delivery Method Room Air Intake Visit Reasons: 3 Month F/U Intake Note: Patient is here to follow up on DM, HTN, HLD. Complain of allergies and flare up of asthma for the past one week. Tube Cleaner Required: No Language Instructor: Not Required per policy Accompanied by: Self / Same As Patient Allergies dulaglutide [Trulicity] Allergy (Intermediate, Verified 02/25/24 13:31) injection site reaction canagliflozin [Invokana] Adverse Reaction (Intermediate, Verified 02/25/24 13:31) sharp pains in low back semaglutide [From Rybelsus] Adverse Reaction (Intermediate, Verified 02/25/24 13:31) Diarrhea tadalafil [From Cialis] Adverse Reaction (Mild, Verified 02/25/24 13:31) upset stomach bee sting Allergy (Severe, Uncoded 02/25/24 13:31) Anaphylaxis Fruits Allergy (Intermediate, Uncoded 02/25/24 13:31) itchy mouth Medication List - Last Reconciled 02/25/24 by Shane Evans MD albuterol sulfate 90 mcg/actuation (Ventolin HFA) 2 puffs inhalation Q6H PRN 30 days aspirin 81 mg PO DAILY blood sugar diagnostic ([employer] Verio test strips) USE TO TEST BLOOD SUGAR 3 TIMES A DAY hydrocortisone 2.5% 1 appl topical BID PRN insulin degludec (Tresiba FlexTouch U-100 insulin) 21 units (0.21 mL) subcut BEDTIME lancets ([employer] Delica Lancets) Three times a day lisinopril-hydrochlorothiazide 20-12.5 mg 2 tabs PO DAILY metformin ER 1,000 mg (2 x 500 mg) PO BID naproxen 500 mg PO BID omeprazole 20 mg PO QAM pen needle, diabetic (BD Ultra-Fine Glendy Pen Needle) As directed once daily simvastatin 40 mg PO DAILY Tobacco use date assessed: 02/22/24 Dental Screening Dental Screen Date: 11/09/23 HPI 3 Month F/U HPI Details 58-year-old male presents to the office to discuss his chronic medical conditions. Since the last office visit, patient was seen by the orthopedic surgeon. He has been diagnosed with a tennis elbow and has received 1 dose of steroid injection. The pain symptoms are slowly improving. Blood sugars are in range. He has not been checking them periodically. Not exercising or following any particular dietary regimen. [facility] Medical History Obesity (BMI 30-39.9) GERD (gastroesophageal reflux disease) Major depression in partial remission Postlaminectomy syndrome, not elsewhere classified Asthma Arthritis of right knee Type 2 diabetes mellitus with hyperglycemia Essential hypertension Hyperlipidemia LDL goal <100 Obesity (BMI 30.0-34.9) Surgical History History of back surgery Family History Father Heart attack CVD (cardiovascular disease) Mother Diabetes mellitus HTN (hypertension) Maternal Grandmother Throat cancer Maternal Uncle Lung cancer Paternal Uncle Diabetes mellitus Paternal Aunt Diabetes mellitus Brother Substance use disorder Social History Household Members: Spouse Housing: Apartment Alcohol intake: current Alcohol intake frequency: holidays/special occasions only Patient Tobacco Use Status: Former Tobacco user Quit Date: 12 years ago Cigarettes Per Day: 10 Years Smoked: 18 e-Cigarette/Vaping Use: Never Used Second Hand Smoke Exposure: No Substance Use Type: Marijuana service: No Current occupational status: disabled Cognitive needs: Yes (cane) Hearing needs: No Vision needs: Yes (glasses) Questionnaire Thrive Questionnaire Date Thrive assessed: 11/09/23 HEVER-7 AMB Questionnaire HEVER-7 Date HEVER - 7 assessed: 11/09/23 Source: Developed by Drs. Michael Lanza, Martina Robledo, Sahil Desai and colleagues, with an educational jamey from [employer]. Physical exam (Primary Care) Vital Signs: Last Vital Signs Pulse 66 02/22/24 09:59 BP 114/70 02/22/24 09:59 Pulse Ox 96 02/22/24 09:59 Oxygen Delivery Method Room Air 02/22/24 09:59 BMI result Body Mass Index 29.9 Tobacco/Smoking Status: Tobacco use Status Tobacco use date assessed 02/22/24 02/22/24 10:08 Patient Tobacco Use Status Former Tobacco user 02/22/24 10:08 e-Cigarette/Vaping Use Never Used 02/22/24 10:08 Thrive Assessment: Date of Thrive Assessment Date Thrive assessed 11/09/23 02/22/24 10:08 Const General: cooperative and healthy appearing Nutritional Appearance: well nourished Orientation/consciousness: patient oriented x3 Limitations: no limitations HENMT Head: Yes normal to inspection Eyes General: appearance normal, both eyes and all related structures Neck Neck: Yes normal visual inspection Chest Chest palpation & inspection: normal palpation of entire chest wall Resp Effort & Inspection: normal respiratory effort Neuro General: patient oriented x3 Results AMB Hemoglobin A1c AMB Hemoglobin A1c 6.8 % Last Edit by ISA Meneses on 02/22/24 10:13 Results Reviewed Results Reviewed: Laboratory Last Values Hgb A1c (Clinic) 6.8 % (4.0-6.0) H 02/22/24 09:57 Assessment and Plan Assessment & Plan (1) Lateral epicondylitis of right elbow: Comment: Patient will be given meloxicam to be taken as directed. He has been educated on the side effects of these medications. Code(s): M77.11 - Lateral epicondylitis, right elbow Plan: Continue to follow instructions as suggested by the orthopedic physician. (2) Type 2 diabetes mellitus with hyperglycemia: Code(s): E11.65 - Type 2 diabetes mellitus with hyperglycemia Qualifiers: Diabetes mellitus adjunct faculty for medical terminology insulin use: without adjunct faculty for medical terminology use Qualified Code(s): E11.65 - Type 2 diabetes mellitus with hyperglycemia Plan: A1c is in range. Continue insulin at the same dosage. Encouraged to check blood pressures periodically. Orders: Orders AMB Hemoglobin A1c 02/22/24 E11.65 - Type 2 diabetes mellitus with hyperglycemia Medications: Refilled albuterol sulfate 90 mcg/actuation (Ventolin HFA) 2 puffs inhalation Q6H PRN 8.5 grams 3RF shortness of breath or wheezing 30 days Coding Level of Care Code Est Pt Level 4 (44270) Diagnoses Lateral epicondylitis of right elbow M77.11 Type 2 diabetes mellitus with hyperglycemia, without long-term current use of insulin E11.65 Diabetes mellitus adjunct faculty for medical terminology insulin use: without adjunct faculty for medical terminology use
[2024-02-22 09:59] VITALS: BP 114/70; PULSE 66; O2SAT 96; BMI 29.9
== END 2024-02-22 10:53 | disposition home or self-care (01) ==
PROVIDERS: PCP Internal Medicine; Visit Provider Internal Medicine
DX: E11.65 Type 2 diabetes mellitus with hyperglycemia (principal)
CPT/HCPCS: 83036; 99214

== ENCOUNTER 2024-06-06 08:55 | Outpatient (AMB) | payer MEDICARE, MEDICAID, SELFPAY ==
[2024-06-06 09:11] VITALS: BP 126/62; PULSE 64; O2SAT 97; BMI 29.5
--- NOTE | 2024-06-06 09:11 | A.OFFPC_ITS ---
Vital Signs 06/06/24 09:11 Height 6 ft Weight 217 lb 6 oz BMI 29.5 BP 126/62 Blood Pressure Location Lt brachial Position Sitting Pulse 64 Pulse Source Pulse Oximeter Pulse Oximetry (%) 97 Oxygen Delivery Method Room Air Intake Visit Reasons: 3 Month F/U Intake Note: Patient is here to follow up on DM, HTN, HLD. Complain of allergies and flare up of asthma for the past one week. Grain Cleaner And Transfer Operator Required: No Model Builder Display: Not Required per policy Accompanied by: Self / Same As Patient Allergies dulaglutide [Trulicity] Allergy (Intermediate, Verified 06/06/24 09:49) injection site reaction canagliflozin [Invokana] Adverse Reaction (Intermediate, Verified 06/06/24 09 :49) sharp pains in low back semaglutide [From Rybelsus] Adverse Reaction (Intermediate, Verified 06/06/24 09:49) Diarrhea tadalafil [From Cialis] Adverse Reaction (Mild, Verified 06/06/24 09:49) upset stomach bee sting Allergy (Severe, Uncoded 06/06/24 09:49) Anaphylaxis Fruits Allergy (Intermediate, Uncoded 06/06/24 09:49) itchy mouth Medication List - Last Reconciled 06/06/24 by Shane Evans MD albuterol sulfate 90 mcg/actuation (Ventolin HFA) 2 puffs inhalation Q6H PRN 30 days aspirin 81 mg PO DAILY blood sugar diagnostic ([employer] Verio test strips) USE TO TEST BLOOD SUGAR 3 TIMES A DAY hydrocortisone 2.5% 1 appl topical BID PRN insulin degludec (Tresiba FlexTouch U-100 insulin) 21 units (0.21 mL) subcut BEDTIME lancets ([employer] Delica Lancets) Three times a day lisinopril-hydrochlorothiazide 20-12.5 mg 2 tabs PO DAILY metformin ER 1,000 mg (2 x 500 mg) PO BID naproxen 500 mg PO BID omeprazole 20 mg PO QAM pen needle, diabetic (BD Ultra-Fine Glendy Pen Needle) As directed once daily simvastatin 40 mg PO DAILY Tobacco use date assessed: 06/06/24 Dental Screening Dental Screen Date: 06/06/24 HPI 3 Month F/U HPI Details 58-year-old male presents to the office to discuss his chronic medical conditions. Patient is compliant with his diabetic medications. Does not check his blood sugars periodically. Has not been exercising or following any particular diet. Currently has pain in the left wrist with an injury. He has a brace on the left wrist. He is seeing a local provider for the same. Patient sees an orthopedic surgeon in [facility] for his back pain. The right shoulder pain and the elbow pains have improved. Patient reports that his mental health has been okay. He does have bad days. He has an excellent therapist and currently on no medications. He believes that his poor mental health is due to the bad events that have happened in his life. [facility] Medical History Obesity (BMI 30-39.9) GERD (gastroesophageal reflux disease) Major depression in partial remission Postlaminectomy syndrome, not elsewhere classified Asthma Arthritis of right knee Type 2 diabetes mellitus with hyperglycemia Essential hypertension Hyperlipidemia LDL goal <100 Obesity (BMI 30.0-34.9) Surgical History History of back surgery Family History Father Heart attack CVD (cardiovascular disease) Mother Diabetes mellitus HTN (hypertension) Maternal Grandmother Throat cancer Maternal Uncle Lung cancer Paternal Uncle Diabetes mellitus Paternal Aunt Diabetes mellitus Brother Substance use disorder Social History Household Members: Spouse Housing: Apartment Alcohol intake: current Alcohol intake frequency: holidays/special occasions only Patient Tobacco Use Status: Former Tobacco user Cigarettes Per Day: 10 Years Smoked: 18 e-Cigarette/Vaping Use: Never Used Second Hand Smoke Exposure: No Substance Use Type: Marijuana service: No Current occupational status: disabled Cognitive needs: Yes (cane) Hearing needs: No Vision needs: Yes (glasses) Questionnaire PHQ-9 Over the last 2 weeks, how often have you been bothered by any of the following problems? 1. Little interest or pleasure in doing things: not at all 2. Feeling down, depressed, or hopeless: nearly every day 3. Trouble falling or staying asleep, or sleeping too much: several days 4. Feeling tired or having little energy: several days 5. Poor appetite or overeating: not at all 6. Feeling bad about yourself - or that you are a failure or have let yourself or your family down: not at all 7. Trouble concentrating on things, such as reading the newspaper or watching television: several days 8. Moving or speaking so slowly that other people could have noticed. Or the opposite - being so fidgety or restless that you have been moving around a lot more than usual: not at all 9. Thoughts that you would be better off or of hurting yourself in some wa y: not at all Total score: 6 Depression Screening Interpretation: Positive (Sees a therapist. Declines medications.) Depression Screening Follow-up: In treatment Depression Screening Done: Yes Source: Developed by Drs. Michael Lanza, Martina Robledo, Sahil Desai and colleagues, with an educational jamey from [employer]. Thrive Questionnaire Date Thrive assessed: 06/06/24 I am a: Patient What is your living situation today?: I have a steady place to live Within the past 12 months, did the food you bought not last and you didn't have the money to get more?: Never true Within the past 12 months, did you worry whether your food would run out before you got money to buy more?: Never true Do you have trouble paying for medicines?: No Do you have trouble getting transportation to medical appointments?: No Do you have trouble paying your heating and electricity bill?: No Do you have trouble taking care of your child, family member or friend?: No Do you have trouble with day-to-day activities such as bathing, preparing meals, shopping, managing finances, etc.?: No Are you currently unemployed and looking for a job?: No Are you interested in more education?: No Please select the resources that you would like help with: None Currently or been in a relationship where the following occur: No concerns reported THRIVE Score: 0 AUDIT C Alcohol Use Questionnaire (AUDIT-C) 1. How often do you have a drink containing alcohol?: Never 2. How many drinks containing alcohol do you have on a typical day when you are drinking?: 1 or 2 Total Score: 0 HEVER-7 AMB Questionnaire HEVER-7 Date HEVER - 7 assessed: 06/06/24 Feeling nervous, anxious, or on edge: 0 = Not at all Not being able to stop or control worryin = Not at all Worrying too much about different things: 0 = Not at all Trouble relaxin = Not at all Being so restless that it is hard to sit still: 0 = Not at all Becoming easily annoyed or irritable: 0 = Not at all Feeling afraid as if something awful might happen: 0 = Not at all Total HEVER-7 score (0-4 normal; 5-9 mild; 10-14 moderate; 15-21 severe): 0 Source: Developed by Drs. Michael Lanza, Martina Robledo, Sahil Desai and colleagues, with an educational jamey from [employer]. Physical exam (Primary Care) Vital Signs: Last Vital Signs Pulse 64 06/06/24 09:11 BP 126/62 06/06/24 09:11 Pulse Ox 97 06/06/24 09:11 Oxygen Delivery Method Room Air 06/06/24 09:11 BMI result Body Mass Index 29.5 Tobacco/Smoking Status: Tobacco use Status Tobacco use date assessed 06/06/24 06/06/24 09:17 Patient Tobacco Use Status Former Tobacco user 06/06/24 09:17 e-Cigarette/Vaping Use Never Used 06/06/24 09:17 PHQ-9: PHQ-9 Score PHQ-9: Total score 6 06/06/24 09:37 Depression Screening Interpretation: Positive (Sees a therapist. Declines medications.) Depression Screening Follow-up: In treatment Thrive Assessment: Date of Thrive Assessment Date Thrive assessed 06/06/24 06/06/24 09:17 Currently or been in a relationship where the following occur: No concerns reported Const General: cooperative and healthy appearing Nutritional Appearance: well nourished Orientation/consciousness: patient oriented x3 Limitations: no limitations HENMT Head: Yes normal to inspection Eyes General: appearance normal, both eyes and all related structures Neck Neck: Yes normal visual inspection Chest Chest palpation & inspection: normal palpation of entire chest wall Resp Effort & Inspection: normal respiratory effort Neuro General: patient oriented x3 Results AMB Hemoglobin A1c AMB Hemoglobin A1c 7.0 % Last Edit by ISA Salazar on 06/06/24 09 :38 Results Reviewed Results Reviewed: Laboratory Last Values Hgb A1c (Clinic) 7.0 % (4.0-6.0) H 06/06/24 09:23 Assessment and Plan Assessment & Plan (1) Major depression in partial remission: Code(s): F32.4 - Major depressive disorder, single episode, in partial remission Qualifiers: Major depression recurrence: recurrent Qualified Code(s): F33.41 - Major depressive disorder, recurrent, in partial remission Plan: Currently on no medications. Continue psychotherapy. Patient is under the care of a therapist and psychiatrist if needed. (2) Type 2 diabetes mellitus with hyperglycemia: Code(s): E11.65 - Type 2 diabetes mellitus with hyperglycemia Qualifiers: Diabetes mellitus telecommunications professional insulin use: without detention use Qualified Code(s): E11.65 - Type 2 diabetes mellitus with hyperglycemia Plan: A1c is 7.0. Compliant with diet and exercise urged. Continue medications at current dosage. (3) Right shoulder pain: Code(s): M25.511 - Pain in right shoulder Plan: Blood work has been ordered. Patient raised the possibility of psoriatic arthritis. This condition can not be entertained in the absence of psoriasis. Inflammatory marker on the blood work have been ordered. Orders: Orders AMB Hemoglobin A1c Today Z13.9 - Encounter for screening, unspecified Coding Level of Care Code Est Pt Level 4 (18539) Complex EM visit Add On G2211 Diagnoses Recurrent major depressive disorder, in partial remission F33.41 Major depression recurrence: recurrent Type 2 diabetes mellitus with hyperglycemia, without long-term current use of insulin E11.65 Diabetes mellitus detention insulin use: without detention use Right shoulder pain M25.511
== END 2024-06-06 09:54 | disposition home or self-care (01) ==
PROVIDERS: PCP Internal Medicine; Visit Provider Internal Medicine
DX: F33.41 Major depressive disorder, recurrent, in partial remission (principal); E11.65 Type 2 diabetes mellitus with hyperglycemia; M25.511 Pain in right shoulder; Z13.9 Encounter for screening, unspecified
CPT/HCPCS: 83036; 99214; G2211

== ENCOUNTER 2024-09-25 10:11 | Outpatient (AMB) | payer MEDICARE, MEDICAID, SELFPAY ==
--- NOTE | 2024-09-25 10:21 | A.OFFPC_ITS ---
Vital Signs 09/25/24 10:22 Height 6 ft Weight 221 lb 4 oz BMI 30.0 BP 130/70 Blood Pressure Location Lt brachial Position Sitting Pulse 70 Pulse Source Pulse Oximeter Pulse Oximetry (%) 98 Oxygen Delivery Method Room Air Intake Visit Reasons: 3 month follow up Intake Note: Patient is here to follow up on DM, HTN, HLD. 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 Required: No Associate Professor Of Library Media: Not Required per policy Accompanied by: Self / Same As Patient Allergies dulaglutide [Trulicity] Allergy (Intermediate, Verified 09/25/24 10:21) injection site reaction canagliflozin [Invokana] Adverse Reaction (Intermediate, Verified 09/25/24 10:21) sharp pains in low back semaglutide [From Rybelsus] Adverse Reaction (Intermediate, Verified 09/25/24 10:21) Diarrhea tadalafil [From Cialis] Adverse Reaction (Mild, Verified 09/25/24 10:21) upset stomach bee sting Allergy (Severe, Uncoded 09/25/24 10:21) Anaphylaxis Fruits Allergy (Intermediate, Uncoded 09/25/24 10:21) itchy mouth Tobacco use date assessed: 09/25/24 Dental Screening Dental Screen Date: 06/06/24 [facility] Medical History Obesity (BMI 30-39.9) GERD (gastroesophageal reflux disease) Major depression in partial remission Postlaminectomy syndrome, not elsewhere classified Asthma Arthritis of right knee Type 2 diabetes mellitus with hyperglycemia Essential hypertension Hyperlipidemia LDL goal <100 Obesity (BMI 30.0-34.9) Surgical History History of back surgery Family History Father Heart attack CVD (cardiovascular disease) Mother Diabetes mellitus HTN (hypertension) Maternal Grandmother Throat cancer Maternal Uncle Lung cancer Paternal Uncle Diabetes mellitus Paternal Aunt Diabetes mellitus Brother Substance use disorder Social History Household Members: Spouse Housing: Apartment Alcohol intake: current Alcohol intake frequency: holidays/special occasions only Patient Tobacco Use Status: Former Tobacco user Cigarettes Per Day: 10 Years Smoked: 18 e-Cigarette/Vaping Use: Never Used Second Hand Smoke Exposure: No Substance Use Type: Marijuana service: No Current occupational status: disabled Cognitive needs: Yes (cane) Hearing needs: No Vision needs: Yes (glasses) Questionnaire Thrive Questionnaire Date Thrive assessed: 06/06/24 AUDIT C Alcohol Use Questionnaire (AUDIT-C) 3. How often do you have six or more drinks on one occasion?: Never Total Score: 0 HEVER-7 AMB Questionnaire HEVER-7 Date HEVER - 7 assessed: 06/06/24 Source: Developed by Drs. Michael Lanza, Martina Robledo, Sahil Desai and colleagues, with an educational jamey from [employer]. Physical exam (Primary Care) Vital Signs: Last Vital Signs Pulse 70 09/25/24 10:22 BP 130/70 09/25/24 10:22 Pulse Ox 98 09/25/24 10:22 Oxygen Delivery Method Room Air 09/25/24 10:22 BMI result Body Mass Index 30.0 Tobacco/Smoking Status: Tobacco use Status Tobacco use date assessed 09/25/24 09/25/24 10:28 Patient Tobacco Use Status Former Tobacco user 09/25/24 10:28 e-Cigarette/Vaping Use Never Used 09/25/24 10:28 Thrive Assessment: Date of Thrive Assessment Date Thrive assessed 06/06/24 09/25/24 10:28 Results AMB Hemoglobin A1c AMB Hemoglobin A1c 7.2 % Last Edit by ISA Meneses on 09/25/24 10:33 Results Reviewed Results Reviewed: Laboratory Last Values Hgb A1c (Clinic) 7.2 % (4.0-6.0) H 09/25/24 10:20 Coding Level of Care Code Est Pt Level 4 (69703) Complex EM visit Add On G2211 Diagnoses Recurrent major depressive disorder, in partial remission F33.41 Major depression recurrence: recurrent Essential hypertension I10 Type 2 diabetes mellitus with hyperglycemia, without long-term current use of insulin E11.65 Diabetes mellitus long term care pharmacist insulin use: without long term care pharmacist use Assessment & Plan Assessment & Plan (1) Major depression in partial remission: Code(s): F32.4 - Major depressive disorder, single episode, in partial remission Category: Medical Qualifiers: Major depression recurrence: recurrent Qualified Code(s): F33.41 - Major depressive disorder, recurrent, in partial remission Plan: Continue psychotherapy. Patient is reluctant to start medications. (2) Essential hypertension: Code(s): I10 - Essential (primary) hypertension Category: Medical Plan: Blood pressure is in range. Continue medications at same dosage. (3) Type 2 diabetes mellitus with hyperglycemia: Code(s): E11.65 - Type 2 diabetes mellitus with hyperglycemia Category: Medical Qualifiers: Diabetes mellitus mcfp insulin use: without long term care pharmacist use Qualified Code(s): E11.65 - Type 2 diabetes mellitus with hyperglycemia Plan: A1c is 7.2. Patient was advised to control his diet. Plan History of Present Illness The patient is a 59-year-old male presenting with a routine follow-up. His major depressive disorder varies in intensity, described as having more bad days than good. He experiences significant anxiety, occasionally severe enough to interrupt therapy sessions. He avoids pharmacological treatment due to undesirable side effects like feeling out of it . Sleep is variable, and therapy is reported to help with both depression and anxiety. Concurrent Type 2 Diabetes Mellitus control is inconsistent. The most recent HbA1c is 7.2%, slightly elevated from the previous 7.0%. He reports dietary indiscretion, particularly with sweets and bread. Weight fluctuation due to irregular eating patterns is affected by depression. His insulin regimen inc ludes 21 units at nighttime with Metformin taken twice daily, morning and evening. The patient notes intermittent joint pain and shoulder discomfort. Osteoarthritis affects multiple joints, exacerbated by weather changes. He performs stretching exercises to alleviate symptoms. Active management of hypertension continues with current medications, though specific mention is not detailed in this encounter. Social History - Sees a psychotherapist weekly for mental health support. - Reports dietary lapses particularly with sweets and bread, impacting glycemic control. - Experiences variable sleep quality. - Engages in stretching exercises for joint pain relief. - No flu shot received this season. Review of Systems - Musculoskeletal: Reports joint pain and shoulder discomfort. - Endocrine: Reports variable blood sugar control. - Neurological: Denies any localized pain elicited during physical exam. Physical Exam General: Cooperative and healthy appearing Nutritional Appearance: Well nourished Orientation/consciousness: Patient oriented x3 Limitations: No limitations Head: Normal to inspection General: Appearance normal, both eyes and all related structures Neck: Normal visual inspection Chest: Normal palpation of entire chest wall Respiratory: Normal respiratory effort Neurology: Patient oriented x3 Results - Labs: HbA1c 7.2% Plan - Major Depressive Disorder: Continue weekly psychotherapy. Medication reconsideration open based on patient's comfort. - Diabetes Mellitus: Reinforce importance of daily insulin use and adherence to Metformin regimen. Diet modification encouraged. Follow-up lab work to evaluate glycemic control. - Anxiety Disorder: Continue current psychotherapy schedule. Consider anxiolytic options if patient's condition worsens. - Hyperlipidemia: Reassessed based on stable condition; continue current management with Simvastatin. - Osteoarthritis: Continue stretching exercises. Monitor joint pain; consider further intervention if symptoms persist. - Hypertension: Continue current medications; monitor blood pressure at home. - Shoulder Pain: Regular stretching exercises; consider physical therapy if no improvement. - Patient education on diet, exercise, and regular medication adherence is emphasized. - Follow-up in three months for reevaluation. Patient was informed and verbally consented to the use of an ambient scribe for clinic note documentation during this visit. Discussion Notes During this visit, I discussed the importance of continuing psychotherapy for the management of depression and anxiety. The patient reiterated a preference for non-pharmacological management at present. I emphasized the significance of adhering to the prescribed insulin regimen for diabetes and the role of diet in controlling blood glucose levels. I explained the long-acting nature of the insulin being used and confirmed its appropriateness, reinforcing the requirement for daily use to maintain effective glycemic control. We reviewed the current management strategies for his osteoarthritis, highlighting the benefits of daily stretching exercises. I ordered fasting blood work to monitor diabetes status, and we also covered the importance of maintaining his hypertension management regimen. I confirmed the continuation of his lipid- lowering therapy with Simvastatin, considering his current lipid profile status. Patient Instructions - Continue weekly psychotherapy sessions for depression and anxiety management. - Maintain current insulin and Metformin schedule daily as prescribed. - Be mindful of dietary habits, specifically reducing high sugar and carbohydrate intake. - Perform regular stretching exercises for joint and shoulder relief. - Monitor blood sugar at home and bring logs to next appointment. - Follow up with fasting blood work as instructed. - Consider getting a flu vaccine this season. - Schedule next follow-up visit in three months. Orders: Orders AMB Hemoglobin A1c Today E11.65 - Type 2 diabetes mellitus with hyperglycemia
[2024-09-25 10:22] VITALS: BP 130/70; PULSE 70; O2SAT 98
--- OUTSIDE RECORDS SUMMARY | 2024-09-26 00:10 | XMS_ITS | Data Portability ---
Author Organization [facility], [facility] Address [address] [place] [address] Assessment No assessment recorded. Plan of Treatment Reminders Order Date Submit Date Provider Last Modified By Organization Details Last Modified Time Details Appointments None recorded. Lab None recorded. Referral None recorded. Procedures None recorded. Surgeries None recorded. Imaging XR, elbow, 3 or more view - rm 221 RT elbow/ forearm 024 024 [email or web address] Not available 4 07:17:37 Medication Orders None recorded. Patient TargetsNo targets recorded. Patient InstructionsNo instructions recorded. Reason for Referral None Reported. Problems Name Problem SNOMED Code Status Onset Date Resolution Date Notes Provider Name and Address Organization Details Recorded Time Pain of right elbow joint 7168945247536 9109 Active 2023 VICTOR MANUEL romo [facility] 4 09:09:08 Lateral epicondylit is 565747828 Active 2023 VICTOR MANUEL romo [facility] 4 09:35:57 Problem Notes None recorded. Medical Equipment None Reported. Allergies No known drug allergies Medications Name Sig Start Date Stop Date Status Note LastModified by Organization Details LastModified Time buspirone 5 mg tablet TAKE ONE TABLET BY MOUTH THREE TIMES A DAY 01/29 completed Not Available Not Available Not Available trazodone 50 mg tablet TAKE ONE TABLET BY MOUTH AT BEDTIME 01/29 completed Not Available Not Available Not Available lisinopril 20 mg-hydrochl orothiazide 12.5 mg tablet TAKE 2 TABLETS BY MOUTH DAILY. active Not Available Not Available No t Available meloxicam 15 mg tablet TAKE ONE TABLET BY MOUTH EVERY DAY 01/29 completed Not Available Not Available Not Available glipizide ER 5 mg tablet, extended release 24 hr TAKE 2 TABLETS BY MOUTH DAILY 01/29 completed Not Available Not Available Not Available simvastatin 40 mg tablet TAKE 1 TABLET BY MOUTH DAILY. active Not Available Not Available No t Available hydrocortis one 2.5 % topical cream APPLY ONE APPLICATI ON EXTERNAL TWICE A DAY NEEDED FOR SKIN IRRITATIO N 01/29 completed Not Available Not Available Not Available metformin ER 500 mg tablet,exte nded release 24 hr TAKE TWO TABLETS BY MOUTH TWICE A DAY active Not Available Not Available No t Available naproxen 500 mg tablet TAKE ONE TABLET BY MOUTH TWICE A DAY active Not Available Not Available No t Available bupropion HCl XL 150 mg 24 hr tablet, extended release TAKE ONE TABLET BY MOUTH EVERY MORNING 01/29 completed Not Available Not Available Not Available OneTouch Verio test strips USE TO TEST BLOOD SUGAR 3 TIMES A DAY. active Not Available Not Available No t Available insulin degludec (U-100) 100 unit/mL (3 mL) subcutaneou s pen INJECT 21 UNITS 0.21ML) SUBCUTANE OUSLY AT BEDTIME active Not Available Not Available No t Available BD Glendy 2nd Gen Pen Needle 32 gauge x 5/32 USE DIRECTED ONCE DAILY. active Not Available Not Available No t Available Vitals Date Recorded Body height Body mass index (BMI) Body weight Provider Name and Address Organization Details Last Updated DateTime 01/30/2024 182.88 cm 30.5 kg/m2 336090.28 g VICTOR MANUEL [facility] 01/30/2024 09:08:20 Social History None recorded. Functional Status None recorded. Mental Status None recorded. Family History Nothing Reported. Medical History No medical history recorded. Past Encounters Encounter ID Performer Location Encounter Start Date Encounter Closed Date Diagnosis/Indication Diagnosis SNOMED-CT Code Diagnosis ICD10 Code [id number] MARILY Dove [address] [place] [address] 01/30/2024 08:41:42 02/21/2024 07:17:36 Pain of right elbow joint 8787367550 6312172 M25.521 Lateral epicondylitis 20 7802291 M77.11 Lateral ep icondylitis of right humerus 6073013255 12990 M77.11 Health Concerns Section Related Observation LastModified by Organization Detai ls LastModified Time None Recorded Concern Status LastModified by Organization Details LastModified Time None Recorded Advance Directives Directive None Recorded Payers Encounter Date Sequence Insurance Name Policy Number Policy Muir Covered Member ID Muir Member ID Guarantor Name 01/30/2024 1 [place] [employer] Gaudencio Steiner [id number] Gaudencio Steiner 01/30/2024 2 [place] [facility] Gaudencio Steiner [id number] Gaudencio Steiner Notes Date Note Type Note Provider Name and Address Organization Details Recorded Time 01/30/2024 text/html I am seeing the patient today under the supervision of Dr. Bonilla who was available but who did not see the patient.HPI: Gaudencio presents examination of his right elbow. He is a 58-year-old gentleman who reports having slipped and fallen on the ice last winter landing on the right elbow. 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 Denies any paresthesias or paralysis.Past family, medical, social history and review of systems has been reviewed, updated and is located in the patient? s chart.PHYSICAL EXAMINATION: The patient is well appearing and in no apparent distress. Alert and oriented x3. Gait is symmetric.Left elbow:ROM full, full pronation and supination. No evidence of varus or valgus instability. No radiocapitellar crepitus. No medial or lateral epicondylar tenderness. No evidence for effusion. No evidence fo mechanical symptoms or locking. Intact median, radial and ulnar nerve both motor and sensory function. Negative Tinel's at the level of elbow.Right elbow:ROM full, full pronation and supination. No evidence of varus or valgus instability. No radiocapitellar crepitus. Moderate lateral epicondylar tenderness. Reproducible pain with resisted supination and dorsiflexion of the wrist. No evidence for effusion. No evidence fo mechanical symptoms or locking. Intact median, radial and ulnar nerve both motor and sensory function. Negative Tinel's at the level of elbow.Peripheral, vascular, lymphatic examination, skin, neurological, coordination, reflexes, sensation are within normal limits.X-RAY REPORT: X-rays were ordered, obtained and reviewed today at [facility]. 3 views of the right elbow demonstrate arthritic changes seen to the ulnohumeral joint. There is a traction spur off the olecranon. No acute fractures or dislocation noted.IMPRESSION: Right elbow lateral epicondylitisPLAN: Reviewed and discussed symptoms and appropriate course of care. PT was prescribed with oral NSAIDs. Follow up with us as needed. Elieser Bunch PA-C [address], [place], [address], [place] [facility] [place] [facility] 01/30/2024 09:34:39
== END 2024-09-25 11:20 | disposition home or self-care (01) ==
PROVIDERS: PCP Internal Medicine; Visit Provider Internal Medicine
DX: F33.41 Major depressive disorder, recurrent, in partial remission (principal); I10 Essential (primary) hypertension; E11.65 Type 2 diabetes mellitus with hyperglycemia

== ENCOUNTER → 2024-09-25 10:11 | Outpatient (BNVA) | payer MEDICARE, MEDICAID, SELFPAY | PROVIDERS: PCP Internal Medicine; Visit Provider Internal Medicine | DX: F33.41 Major depressive disorder, recurrent, in partial remission (principal); I10 Essential (primary) hypertension; E11.65 Type 2 diabetes mellitus with hyperglycemia | CPT/HCPCS: 83036; 99212 ==

== ENCOUNTER 2025-01-23 10:00 | Outpatient (AMB) | payer MEDICARE, MEDICAID, SELFPAY ==
--- NOTE | 2025-01-23 10:24 | MHC.PC.OV ---
Vital Signs 01/23/25 10:25 Height 6 ft Weight 222 lb BMI 30.1 BP 130/70 Blood Pressure Location Lt brachial Position Sitting Pulse 63 Pulse Source Pulse Oximeter Temp 97.1 F Temp Source Temporal Artery Scan Pulse Oximetry (%) 97 Oxygen Delivery Method Room Air Intake Visit Reasons: 3 month f/u Intake Note: Patient is here to follow up on DM, GERD, HTN, HLD. Aviation Electrical Technician Required: No Dishwashing Machine Repairer: Not Required per policy Accompanied by: Self / Same As Patient Allergies dulaglutide [Trulicity] Allergy (Intermediate, Verified 01/23/25 11:04) injection site reaction canagliflozin [Invokana] Adverse Reaction (Intermediate, Verified 01/23/25 11:04) sharp pains in low back semaglutide [From Rybelsus] Adverse Reaction (Intermediate, Verified 01/23/25 11:04) Diarrhea tadalafil [From Cialis] Adverse Reaction (Mild, Verified 01/23/25 11:04) upset stomach bee sting Allergy (Severe, Uncoded 01/23/25 11:04) Anaphylaxis Fruits Allergy (Intermediate, Uncoded 01/23/25 11:04) itchy mouth Medication List - Last Reconciled 01/23/25 by Shane Evans MD albuterol sulfate 90 mcg/actuation (Ventolin HFA) 2 puffs inhalation Q6H PRN 30 days aspirin 81 mg PO DAILY blood sugar diagnostic ([employer] Ver[employer] test strips) USE TO TEST BLOOD SUGAR 3 TIMES A DAY empagliflozin (Jardiance) 25 mg PO DAILY 90 days hydrocortisone 2.5% 1 appl topical BID PRN hydrocortisone 2.5% 1 appl topical BID PRN insulin glargine-yfgn 21 units (0.21 mL) subcut DAILY 90 days lancets ([employer] Delica Lancets) Three times a day lisinopril-hydrochlorothiazide 20-12.5 mg 2 tabs PO DAILY naproxen 500 mg PO BID omeprazole 20 mg PO QAM pen needle, diabetic (BD Ultra-Fine Glendy Pen Needle) As directed once daily simvastatin 40 mg PO DAILY Tobacco use date assessed: 01/23/25 Dental Screening Dental Screen Date: 01/23/25 Did you have a dental visit in the last 12 months?: No Did you have a dental problem in the last 6 months where you did not have access to dental care?: No Was dental information given to patient?: No [facility] Medical History Obesity (BMI 30-39.9) GERD (gastroesophageal reflux disease) Major depression in partial remission Postlaminectomy syndrome, not elsewhere classified Asthma Arthritis of right knee Type 2 diabetes mellitus with hyperglycemia Essential hypertension Hyperlipidemia LDL goal <100 Obesity (BMI 30.0-34.9) Surgical History History of back surgery Family History Father Heart attack CVD (cardiovascular disease) Mother Diabetes mellitus HTN (hypertension) Maternal Grandmother Throat cancer Maternal Uncle Lung cancer Paternal Uncle Diabetes mellitus Paternal Aunt Diabetes mellitus Brother Substance use disorder Social History Household Members: Spouse Housing: Apartment Alcohol intake: current Alcohol intake frequency: holidays/special occasions only Patient Tobacco Use Status: Former Tobacco user Cigarettes Per Day: 10 Years Smoked: 18 Packs per year/per ci.00 e-Cigarette/Vaping Use: Never Used Second Hand Smoke Exposure: Yes Substance Use Type: Marijuana service: No Current occupational status: disabled Cognitive needs: Yes (cane) Hearing needs: No Vision needs: Yes (glasses) Questionnaire PHQ-9 Over the last 2 weeks, how often have you been bothered by any of the following problems? 1. Little interest or pleasure in doing things: not at all 2. Feeling down, depressed, or hopeless: not at all 3. Trouble falling or staying asleep, or sleeping too much: not at all 4. Feeling tired or having little energy: not at all 5. Poor appetite or overeating: not at all 6. Feeling bad about yourself - or that you are a failure or have let yourself or your family down: not at all 7. Trouble concentrating on things, such as reading the newspaper or watching television: not at all 8. Moving or speaking so slowly that other people could have noticed. Or the opposite - being so fidgety or restless that you have been moving around a lot more than usual: not at all 9. Thoughts that you would be better off or of hurting yourself in some way: not at all Total score: 0 Depression Screening Interpretation: Negative Depression Screening Done: Yes Source: Developed by Drs. Michael Lanza, Martina Robledo, Sahil Desai and colleagues, with an educational jamey from [employer]. Thrive Questionnaire Date Thrive assessed: 01/23/25 I am a: Patient Within the past 12 months, did the food you bought not last and you didn't have the money to get more?: Never true Within the past 12 months, did you worry whether your food would run out before you got money to buy more?: Never true Do you have trouble paying for medicines?: No Do you have trouble getting transportation to medical appointments?: No Do you have trouble paying your heating and electricity bill?: No Do you have trouble taking care of your child, family member or friend?: No Do you have trouble with day-to-day activities such as bathing, preparing meals, shopping, managing finances, etc.?: No Are you currently unemployed and looking for a job?: No Are you interested in more education?: No Please select the resources that you would like help with: None Currently or been in a relationship where the following occur: No concerns reported THRIVE Score: 0 AUDIT C Alcohol Use Questionnaire (AUDIT-C) 1. How often do you have a drink containing alcohol?: Never 3. How often do you have six or more drinks on one occasion?: Never Total Score: 0 HEVER-7 AMB Questionnaire HEVER-7 Date HEVER - 7 assessed: 01/23/25 Feeling nervous, anxious, or on edge: 0 = Not at all Not being able to stop or control worryin = Not at all Worrying too much about different things: 0 = Not at all Trouble relaxin = Not at all Being so restless that it is hard to sit still: 0 = Not at all Becoming easily annoyed or irritable: 0 = Not at all Feeling afraid as if something awful might happen: 0 = Not at all Total HEVER-7 score (0-4 normal; 5-9 mild; 10-14 moderate; 15-21 severe): 0 Source: Developed by Martina PrajapatiW. Venkat, Sahil Desai and colleagues, with an educational jamey from [employer]. Physical exam (Primary Care) Vital Signs: Last Vital Signs Temp 97.1 F 01/23/25 10:25 Pulse 63 01/23/25 10:25 BP 130/70 01/23/25 10:25 Pulse Ox 97 01/23/25 10:25 Oxygen Delivery Method Room Air 01/23/25 10:25 BMI result Body Mass Index 30.1 Tobacco/Smoking Status: Tobacco use Status Tobacco use date assessed 01/23/25 01/23/25 10:39 Patient Tobacco Use Status Former Tobacco user 01/23/25 10:39 e-Cigarette/Vaping Use Never Used 01/23/25 10:39 PHQ-9: PHQ-9 Score PHQ-9: Total score 0 01/23/25 10:39 Depression Screening Interpretation: Negative Thrive Assessment: Date of Thrive Assessment Date Thrive assessed 01/23/25 01/23/25 10:39 Currently or been in a relationship where the following occur: No concerns reported Results AMB Hemoglobin A1c AMB Hemoglobin A1c 6.6 % Last Edit by ISA Meneses on 01/23/25 10:40 Results Reviewed Results Reviewed: Laboratory Last Values Hgb A1c (Clinic) 6.6 % (4.0-6.0) H 01/23/25 10:23 Coding Level of Care Code Est Pt Level 4 (12587) Complex EM visit Add On G2211 Diagnoses Type 2 diabetes mellitus with hyperglycemia, without long-term current use of insulin E11.65 Diabetes mellitus jail insulin use: without jail use Recurrent major depressive disorder, in partial remission F33.41 Major depression recurrence: recurrent Assessment & Plan Assessment & Plan (1) Type 2 diabetes mellitus with hyperglycemia: Code(s): E11.65 - Type 2 diabetes mellitus with hyperglycemia Category: Medical Qualifiers: Diabetes mellitus meterman insulin use: without meterman use Qualified Code(s): E11.65 - Type 2 diabetes mellitus with hyperglycemia Plan: Blood sugar log reviewed. Continue insulin at same dosage (2) Major depression in partial remission: Code(s): F32.4 - Major depressive disorder, single episode, in partial remission Category: Medical Qualifiers: Major depression recurrence: recurrent Qualified Code(s): F33.41 - Major depressive disorder, recurrent, in partial remission Plan: Patient declines medications. Continuing psychotherapy. Plan History of Present Illness The patient is a 59-year-old male presenting with mental health concerns and insulin medication management. He reports ongoing challenges with his mental health, characterized by instability and frustration. Currently engaged with a therapist who is described positively, he acknowledges experiencing both good and bad days, adhering to a therapeutic approach without medication, which was previously attempted but discontinued due to undesired effects. In terms of his diabetes management, the patient mentioned a disruption in the availability of his regular insulin, Degludec, due to it no longer being produced. After consulting with staff, he established that Glargine, which shares equivalent active ingredients, will be continued for his insulin therapy. The medication has been confirmed for coverage through his provider, ensuring continuity in managing his condition. Social History - Receives therapy regularly for mental health concerns - Prefers non-medication therapy for mental health management - Current therapy includes regular engagement with a therapist Review of Systems - Psychiatric: Reports ongoing mental health difficulties with variability in mood. - Endocrine: Reports current diabetes management issue related to insulin availability. Physical Exam General: Cooperative and healthy appearing Nutritional Appearance: Well nourished Orientation/consciousness: Patient oriented x3 Limitations: No limitations Head: Normal to inspection General: Appearance normal, both eyes and all related structures Neck: Normal visual inspection Chest: Normal palpation of entire chest wall Respiratory: N ormal respiratory effort Neurology: Patient oriented x3, but reports feeling mentally scattered and not in a good place. Results Plan I have acknowledged the patient?s current therapeutic regimen in managing his mental health and advised the continuation of his current therapeutic approach without medication until deemed necessary. For diabetes management, the switch to Glydine is confirmed appropriate due to Gludac's production termination. The Glydine has equivalent active ingredients and confirmed insurance coverage, ensuring continued diabetes management. The patient should report any issues promptly. Patient was informed and verbally consented to the use of an ambient scribe for clinic note documentation during this visit. Discussion Notes I discussed with the patient the ongoing management of his mental health, emphasizing that therapy would continue as the primary avenue for treatment. I agreed with his preference to avoid medication unless necessary and encouraged open communication with his therapist regarding any changes. For his diabetes management, I confirmed his change in insulin to Glargine due to retail personal banker cessation of degludec, and reassured him regarding coverage by [facility], ensuring continued stability in his diabetes treatment plan. Patient Instructions - Continue therapy sessions for mental health management. - Monitor mental health and communicate any needs for medication changes. - Continue insulin therapy with Glydine and monitor blood glucose levels. - Report any issues with medications or health promptly. Orders: Orders AMB Hemoglobin A1c Today E11.65 - Type 2 diabetes mellitus with hyperglycemia
[2025-01-23 10:25] VITALS: BP 130/70; PULSE 63; TEMP 36.2; O2SAT 97; BMI 30.1
--- OUTSIDE RECORDS SUMMARY | 2025-01-23 11:37 | XMS_ITS | Clinical Summary ---
Author Organization [facility] Address [address] [place] [address] Care Team Providers Care Copy Director Name Role Phone Unavailable Primary Care Provider Unavailabl e Social History Tobacco Use Types Packs/Day Years Used Date Smoking Tobacco: Never Assessed Sex and Gender Information Value Date Recorded Sex Assigned at Not on file Gender Identity Not on file Sexual Orientation Not on file Plan of Treatment Health Maintenance Due Date Last Done Comments Hepatitis C Virus Screening 1965 HIV Screening 1978 DTaP/Tdap/Td Vaccines (1 - Tdap) 1984 Hepatitis B Vaccines (1 of 3 - 19+ 3-dose series) 1984 Pneumococcal Vaccines 50+ (1 of 1 - PCV) 2015 Zoster (Shingles) Vaccine (1 of 2) 2015 COVID-19 Vaccine ( - 2023-2 5 season) 2024 Pneumococcal Vaccine: Pediat lev (0-5 Years) and At-Risk Patients (6 to 49 Years) Aged Out No longer eligible b ased on patient's age to complete this topic
--- OUTSIDE RECORDS SUMMARY | 2025-01-23 11:37 | XMS_ITS | Clinical Summary ---
Author Organization [employer] Address [address] [facility] [address] [place] [address] Care Team Providers Care Reprint Sorter Name Role Phone Unavailable Primary Care Provider Unavailabl e Encounters Date Type Department Care Team Description 11/15/2024 Telephone [facility] OPTOMETRY [address] [place] [address] Sravani Blood OD from Last 3 Months Social History Tobacco Use Types Packs/Day Years Used Date Smoking Tobacco: Never Assessed Sex and Gender Information Value Date Recorded Sex Assigned at Male 08/15/2022 10:15 AM EDT Legal Sex Male 10:15 AM EDT Gender Identity Male 08/15/2022 10:15 AM EDT Sexual Orientation Choose not to disclose 2021 10:15 AM EDT Plan of Treatment Health Maintenance Due Date Last Done Comments CT Colonography 1965 Colonoscopy 1965 Colorectal Cancer Screening 1965 Depression Screening 1965 FIT DNA/Cologuard 1965 FIT 1965 FOBT 1965 HIV Screening 1965 Lipid Panel 1965 SDOH Screening 1965 Sigmoidoscopy 1965 Alcohol/Substance Use Screening 1977 Tobacco Screening 1977 Hepatitis C Screening 1983 DTaP/Tdap/Td Vaccines (1 - Tdap) 1984 Hepatitis B Vaccines (1 of 3 - 19+ 3-dose series) 1984 Pneumococcal Vaccine: 50+ Years (1 of 1 - PCV) 2015 Zoster Vaccines (1 of 2) 2015 COVID-19 Vaccine ( - season) 2024 09/23/2022, 01/03/2022, 07/13/2021, Additional history exists Influenza Vaccine (#1) 2024 RSV Patients and Patients Aged 60 years or older (1 - 1-dose 75+ series) 2040 HIB Vaccines Aged Out No longer eligi ble based on patient's age to complete this topic HPV Vaccines Aged Out No longer eligi ble based on patient's age to complete this topic Hepatitis A Vaccines Aged Out No long er eligible based on patient's age to complete this topic IPV Vaccines Aged Out No longer eligi ble based on patient's age to complete this topic Meningococcal Vaccine Aged Out No maribel sharla eligible based on patient's age to complete this topic RSV under 20 months Aged Out No longe r eligible based on patient's age to complete this topic Rotavirus Vaccines Aged Out No longer eligible based on patient's age to complete this topic Insurance [facility] STANDARD
--- OUTSIDE RECORDS SUMMARY | 2025-01-23 11:37 | XMS_ITS | Clinical Summary ---
Author Organization [employer] [facility] Address [address] [place] [address] Care Team Providers Care Home Care Rn Name Role Phone Unavailable Primary Care Provider Unavailabl e Social History Tobacco Use Types Packs/Day Years Used Date Smoking Tobacco: Never Assessed Sex and Gender Information Value Date Recorded Sex Assigned at Not on file Legal Sex Male 2:32 PM EST Gender Identity Not on file Sexual Orientation Not on file Plan of Treatment Health Maintenance Due Date Last Done Comments DTaP,Tdap,and Td Vaccines (1 - Tdap) 1984 Hepatitis B Vaccines (1 of 3 - 19+ 3-dose series) 1984 Pneumococcal Vaccine: 50+ Ye ars (1 of 1 - PCV) 2015 Zoster Vaccines (1 of 2) 2015 Cholesterol Screening (Lipid Panel) 09/14/2022 Colorectal Cancer Screening: Colonoscopy 09/14/2022 Depression Screening 09/14/2022 HIV Screening 09/14/2022 Hepatitis C Screening 09/14/2022 Social Influencers of Health Screening 09/14/2022 COVID-19 Vaccine ( - 2023-2 5 season) 2024 Influenza Vaccine (Season Ended) 2025 RSV Immunization Adult Patie nts (1 - 1-dose 75+ series) 2040 HIB [...] on patient's age to complete this topic MMR Vaccines Aged Out No longer eligi ble based on patient's age to complete this topic Meningococcal ACWY Vaccine Aged Out N o longer eligible based on patient's age to complete this topic Meningococcal B Vaccine Aged Out No l onger eligible based on patient's age to complete this topic Pneumococcal Vaccine: Pediat rics (0 to 5 Years) and At-Risk Patients (6 to 64 Years) Aged Out No longer eligible b ased on patient's age to complete this topic RSV Immunization Patients Un liz 20 months Aged Out No longer eligible b ased on patient's age to complete this topic Varicella Vaccines Aged Out No longer eligible based on patient's age to complete this topic
--- OUTSIDE RECORDS SUMMARY | 2025-01-23 11:37 | XMS_ITS | Encounter Summary ---
Author Organization [employer] Address [address] [place] [address] Care Team Providers Care Hse Specialist Name Role Phone Unavailable Primary Care Provider Unavailabl e Encounter Details Date Type Department Care Team (Late st Contact Info) Description 11/15/[address] 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 I inform him that the only difference is a +0.25 more for distance and near. I spoke with Dr. Blood and she check the patient Rx and said that is the patient Rx that he Brought from his [facility], Dr. Mayberry. She let me know that is the patient is not happy with his Rx he can check back with Dr. Mayberry and let them know that he is not seen well with that rx and they can change it and we will change the lenses gladly with the new rx that Dr. Mayberry Provided. The patient started screaming at me that he is not taking the glasses that we have to change it and add more prescription to make it stronger I told him that we can not do that that his Dr. Mayberry has to do it and we can change it. He said that we did it wrong and he is not going to take the glasses and kitty out. Patient old Rx 05/18/2023 [facility] [place] ADD OD: +2.50 +0.75 180 +2.25 OS: +3.25 +0.50 165 +2.25 Patient New Rx 09/03/2024 [facility] [place] ADD OD: +2.25 +0.75 180 +2.50 OS: +3.50 +0.50 165 +2.50 documented in this encounter Plan of Treatment Not on file documented as of this encounter Visit Diagnoses Not on filedocumented in this encounter
== END 2025-01-23 11:13 | disposition home or self-care (01) ==
LOC: HO.HMCH 10:01
PROVIDERS: PCP Internal Medicine; Visit Provider Internal Medicine
DX: E11.65 Type 2 diabetes mellitus with hyperglycemia (principal); F33.41 Major depressive disorder, recurrent, in partial remission

== ENCOUNTER → 2025-01-23 10:00 | Outpatient (BNVA) | payer MEDICARE, MEDICAID, SELFPAY | PROVIDERS: PCP Internal Medicine; Visit Provider Internal Medicine | DX: E11.65 Type 2 diabetes mellitus with hyperglycemia (principal); F33.41 Major depressive disorder, recurrent, in partial remission | CPT/HCPCS: 83036; 99212 ==

== ENCOUNTER 2025-06-23 11:27 | Outpatient (REF) | payer MEDICARE, MEDICAID, SELFPAY ==
[2025-06-23 12:16] LABS: Hematocrit 42.1 % (42.0-52.0); Hemoglobin 14.1 g/dl (14.0-18.0); Mean Corpuscular HGB Conc 33.5 g/dl (31.0-36.0); Mean Corpuscular Hemoglobin 28.4 pg (27.0-33.0); Mean Corpuscular Volume 84.7 fL (80.0-98.0); NRBC Abs Auto 0.000 X10*3/uL (0.0-0.012); NRBC Pct Auto 0.0 /100WBC (0.0-0.2); Platelet Count 317 X10*3/uL (160-400); Red Blood Count 4.97 X10*6/uL (4.60-5.80); White Blood Count 8.5 X10*3/uL (4.8-10.8)
[2025-06-23 12:34] LABS: Hemoglobin A1C 202.9295 umol/L; Total Hemoglobin (HGBA1C) 3675.9203 umol/L
[2025-06-23 12:39] LABS: Appearance Urine Clear; Glucose Urine UA >=1000 mg/dL (Negative); PH 6.0 (5.0-9.0); Specific Gravity - Urine 1.025 (1.005-1.025); UMIC TRIGGER UA YES
[2025-06-23 12:46] LABS: Alanine Aminotransferase 25 U/L (0-40); Albumin Level 4.4 g/dL (3.5-5.0); Alkaline Phosphatase 80 U/L (39-117); Anion Gap 12 (12-20); Aspartate Amino Transferase 23 U/L (5-37); Blood Urea Nitrogen 15 mg/dL (9-16); Calcium 9.4 mg/dL (8.4-10.2); Carbon Dioxide 29 mmol/L (22-29); Chloride 104 mmol/L (96-108); Cholesterol 134 mg/dL (<200); Estimated Glomerular Filt Rate > 60; HDL Cholesterol 45 mg/dL (>40); Potassium 3.5 mmol/L (3.3-5.1); Sodium 141 mmol/L (135-145); Total Protein 7.4 g/dL (6.5-8.0); Triglycerides 113 mg/dL (<150)
[2025-06-23 13:00] LABS: Thyroid Stimulating Hormone 0.93 uIU/mL (0.32-4.0)
--- OUTSIDE RECORDS SUMMARY | 2025-06-23 14:09 | XMS_ITS | Encounter Summary ---
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 I inform him that the only difference is a +0.25 more for distance and near. I spoke with Dr. Blood and she check the patient Rx and said that is the patient Rx that he Brought from his [facility], Dr. Mayberry. She let me [...] out. Patient old Rx 05/18/2023 [facility] [place] ADD OD: +2.50 +0.75 180 +2.25 OS: +3.25 +0.50 165 +2.25 Patient New Rx 09/03/2024 [facility] [place] ADD OD: +2.25 +0.75 180 +2.50 OS: +3.50 +0.50 165 +2.50 documented in this encounter Plan of Treatment Not on file documented as of this encounter Visit Diagnoses Not on filedocumented in this encounter
--- OUTSIDE RECORDS SUMMARY | 2025-06-23 14:09 | XMS_ITS | Clinical Summary ---
Author Organization [facility] Address [address] [place] [address] Care Team Providers Care Director Engineering Name Role Phone Unavailable Primary Care Provider Unavailabl e Social History Tobacco Use Types Packs/Day Years Used Date Smoking Tobacco: Never Assessed Sex and Gender Information Value Date Recorded Sex Assigned at Not on file Legal Sex Male 3:45 PM EDT Gender Identity Not on file Sexual Orientation Not on file Plan of Treatment Health Maintenance Due Date Last Done Comments Hepatitis C Virus Screening 1965 HIV Screening 1978 DTaP/Tdap/Td Vaccines (1 - Tdap) 1984 Hepatitis B Vaccines (1 of 3 - 19+ 3-dose series) 07/16 Pneumococcal Vaccines 50+ (1 of 1 - PCV) 2015 Zoster (Shingles) Vaccine (1 of 2) 2015 COVID-19 Vaccine ( - season) 2025
--- OUTSIDE RECORDS SUMMARY | 2025-06-23 14:09 | XMS_ITS | Clinical Summary ---
Author Organization [employer] [facility] ity Address [address] [place] [address] Care Team Providers Care Bond Analyst Name Role Phone Unavailable Primary Care Provider [...] Panel) 09/14/2022 Colorectal Cancer Screening: Colonoscopy 09/14/2022 HIV Screening 09/14/2022 Hepatitis C Screening 09/14/2022 Social Influencers of Health Screening 09/14/2022 COVID-19 Vaccine (1 - 2023-2 5 season) 2024 Depression Screening 10/16/2024 Influenza Vaccine (#1) 2025 RSV Immunization Adult Patie nts (1 [...]
--- OUTSIDE RECORDS SUMMARY | 2025-06-23 14:09 | XMS_ITS | Clinical Summary ---
Author Organization [employer] Address [address] [place] [address] Care Team Providers Care Asset Protection Officer Name Role Phone Unavailable Primary Care Provider [...] Panel 1965 SDOH Screening 1965 Sigmoidoscopy 1965 Disability Screening 1965 Alcohol/Substance Use Screening 1977 Tobacco Screening 1977 Hepatitis C Screening 1983 DTaP/Tdap/Td Vaccines (1 - Tdap) 1984 Hepatitis B Vaccines (1 of 3 - 19+ 3-dose series) 1984 Pneumococcal Vaccine: 50+ Years (1 of 1 - PCV) 2015 Zoster Vaccines (1 of 2) 2015 COVID-19 Vaccine (2024- season) 2025 09/23/2022, 01/03/2022, 07/13/2021, Additional history exists Influenza Vaccine (#1) 2025 RSV Patients and Patients Aged 60 years [...] patient's age to complete this topic Insurance [facility] STANDARD
== END 2025-06-23 11:28 | disposition home or self-care (01) ==
LOC: HO.LAB 11:27
PROVIDERS: PCP Internal Medicine; Visit Provider Internal Medicine
DX: E11.65 Type 2 diabetes mellitus with hyperglycemia (principal)
CPT/HCPCS: 36415; 80048; 80061; 80076; 81001; 82043; 82570; 83036; 84443; 85027

== ENCOUNTER 2025-07-31 08:39 | Outpatient (AMB) | payer MEDICARE, MEDICAID, SELFPAY ==
--- NOTE | 2025-07-31 08:46 | MHC.PC.OV ---
Vital Signs 07/31/25 08:48 Height 6 ft Weight 223 lb 8 oz BMI 30.3 BP 130/68 Blood Pressure Location Lt brachial Position Sitting Pulse 54 Pulse Source Pulse Oximeter Temp 97.1 F Temp Source Temporal Artery Scan Pulse Oximetry (%) 98 Oxygen Delivery Method Room Air Intake Visit Reasons: 6mth f/u - see comments Intake Note: Patient is here to follow up on DM, HTN, HLD. Director Of Rotc Required: No Certified Emergency Vehicle Technician: Not Required per policy Accompanied by: Self / Same As Patient Allergies dulaglutide (Trulicity) Allergy (Intermediate, Verified 07/31/25 08:47) injection site reaction canagliflozin (Invokana) Adverse Reaction (Intermediate, Verified 07/31/25 08:47) sharp pains in low back semaglutide (From Rybelsus) Adverse Reaction (Intermediate, Verified 07/31/25 08:47) Diarrhea tadalafil (From Cialis) Adverse Reaction (Mild, Verified 07/31/25 08:47) upset stomach bee sting Allergy (Severe, Uncoded 07/31/25 08:47) Anaphylaxis Fruits Allergy (Intermediate, Uncoded 07/31/25 08:47) itchy mouth Tobacco use date assessed: 07/31/25 Dental Screening Dental Screen Date: 01/23/25 [facility] Medical History Obesity (BMI 30-39.9) GERD (gastroesophageal reflux disease) Major depression in partial remission Postlaminectomy syndrome, not elsewhere classified Asthma Arthritis of right knee Type 2 diabetes mellitus with hyperglycemia Essential hypertension Hyperlipidemia LDL goal <100 Obesity (BMI 30.0-34.9) Surgical History History of colonoscopy (11/28/22) History of back surgery Family History Father Heart attack CVD (cardiovascular disease) Mother Diabetes mellitus HTN (hypertension) Maternal Grandmother Throat cancer Maternal Uncle Lung cancer Paternal Uncle Diabetes mellitus Paternal Aunt Diabetes mellitus Brother Substance use disorder Social History Household Members: Spouse Housing: Apartment Alcohol intake: current Alcohol intake frequency: holidays/special occasions only Patient Tobacco Use Status: Former Tobacco user Cigarettes Per Day: 10 Years Smoked: 18 e-Cigarette/Vaping Use: Never Used Second Hand Smoke Exposure: Yes Substance Use Type: Marijuana service: No Current occupational status: disabled Cognitive needs: Yes (cane) Hearing needs: No Vision needs: Yes (glasses) Questionnaire PHQ-9 Over the last 2 weeks, how often have you been bothered by any of the following problems? 1. Little interest or pleasure in doing things: several days 2. Feeling down, depressed, or hopeless: several days 3. Trouble falling or staying asleep, or sleeping too much: several days 4. Feeling tired or having little energy: several days 5. Poor appetite or overeating: several days 6. Feeling bad about yourself - or that you are a failure or have let yourself or your family down: several days 7. Trouble concentrating on things, such as reading the newspaper or watching television: several days 8. Moving or speaking so slowly that other people could have noticed. Or the opposite - being so fidgety or restless that you have been moving around a lot more than usual: not at all 9. Thoughts that you would be better off or of hurting yourself in some way: not at all Total score: 7 Depression Screening Interpretation: Positive Depression Screening Done: Yes Source: Developed by Drs. Michael Lanza, Martina Robledo, Sahil Desai and colleagues, with an educational jamey from [employer]. Thrive Questionnaire Date Thrive assessed: 07/24/25 I am a: Patient What is your living situation today?: I have a steady place to live Within the past 12 months, did the food you bought not last and you didn't have the money to get more?: Often true Within the past 12 months, did you worry whether your food would run out before you got money to buy more?: Sometimes True Do you have trouble paying for medicines?: Yes Do you have trouble getting transportation to medical appointments?: No Do you have trouble paying your heating and electricity bill?: Yes Do you have trouble taking care of your child, family member or friend?: No Do you have trouble with day-to-day activities such as bathing, preparing meals, shopping, managing finances, etc.?: I choose not to answer this question Are you currently unemployed and looking for a job?: I choose not to answer this question Are you interested in more education?: No Please select the resources that you would like help with: None Currently or been in a relationship where the following occur: I choose not to answer THRIVE Score: 3 AUDIT C Alcohol Use Questionnaire (AUDIT-C) 1. How often do you have a drink containing alcohol?: Monthly or less 2. How many drinks containing alcohol do you have on a typical day when you are drinking?: 1 or 2 Total Score: 1 HEVER-7 AMB Questionnaire HEVER-7 Date HEVER - 7 assessed: 01/23/25 Feeling nervous, anxious, or on edge: 2 = More than half the days Not being able to stop or control worryin = Several days Worrying too much about different things: 1 = Several days Trouble relaxin = Several days Being so restless that it is hard to sit still: 1 = Several days Becoming easily annoyed or irritable: 1 = Several days Feeling afraid as if something awful might happen: 1 = Several days Total HEVER-7 score (0-4 normal; 5-9 mild; 10-14 moderate; 15-21 severe): 8 Source: Developed by Drs. Michael Lanza, Martina Robledo, Sahil Desai and colleagues, with an educational jamey from [employer]. Physical exam (Primary Care) Vital Signs: Last Vital Signs Temp 97.1 F 07/31/25 08:48 Pulse 54 07/31/25 08:48 BP 130/68 07/31/25 08:48 Pulse Ox 98 07/31/25 08:48 Oxygen Delivery Method Room Air 07/31/25 08:48 BMI result Body Mass Index 30.3 Tobacco/Smoking Status: Tobacco use Status Tobacco use date assessed 07/31/25 07/31/25 08:52 Patient Tobacco Use Status Former Tobacco user 07/31/25 08:52 e-Cigarette/Vaping Use Never Used 07/31/25 08:52 PHQ-9: PHQ-9 Score PHQ-9: Total score 7 07/31/25 08:52 Depression Screening Interpretation: Positive Thrive Assessment: Date of Thrive Assessment Date Thrive assessed 07/24/25 07/31/25 08:52 Currently or been in a relationship where the following occur: I choose not to answer Coding Level of Care Code Est Pt Level 4 (89615) Complex EM visit Add On G2211 Diagnoses Type 2 diabetes mellitus with hyperglycemia, without long-term current use of insulin 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 - Diabetes Mellitus: The patient is on a regimen of 21 units of insulin at bedtime and Jardiance. He occasionally skips insulin when his blood glucose levels are within range after dinner. - Joint Pain: The patient reports pain in his knees, elbows, and wrists, attributing some of it to arthritis. He uses naproxen as needed for relief. - Depression: The patient experiences fluctuating mental health and attends weekly therapy sessions with Rohan Donohue at [facility]. - Ganglion Cyst: The patient has a ganglion cyst causing discomfort upon pressure, but it is not a significant concern. - Back Pain: The patient has intermittent back pain, initially suspected to be kidney-related but identified as musculoskeletal, worsened by cold, damp weather. Social History - Family Status: The patient and his brother take care of their sister, indicating a supportive family environment. - Mental Health: The patient attends weekly therapy sessions with Rohan Donohue [facility]. Review of Systems - Musculoskeletal: Reports joint pain in knees, elbows, and wrists. Denies significant shoulder pain. - Endocrine: Reports stable blood glucose levels with occasional need to skip insulin. - Psychological: Reports fluctuating mental health with periods of depression. Physical Exam General: Cooperative and healthy appearing Nutritional Appearance: Well nourished Orientation/consciousness: Patient oriented x3 Limitations: No limitations Head: Normal to inspection General: Appearance normal, both eyes and all related structures Neck: Normal visual inspection Chest: Normal palpation of entire chest wall Respiratory: Good breath sounds, no abnormalities noted. ormal respiratory effort Neurology: Patient oriented x3, reports mental health as up and down with stress and depression. Attends therapy weekly. Results - Labs: A1c was noted to be 7.2, indicating suboptimal glycemic control. Plan - Maintain current insulin and Jardiance regimen for diabetes, with regular blood glucose monitoring. - Use naproxen as needed for joint pain management. - Continue attending weekly therapy sessions for mental health. - Observe ganglion cyst for any changes. - Manage back pain with supportive care, especially during cold, damp conditions. Discussion Notes I discussed with the patient the importance of continuing his current diabetes management regimen, including insulin and Jardiance, and the need for regular blood glucose monitoring. We also talked about using naproxen as needed for joint pain and the benefits of ongoing therapy sessions for mental health support. I advised monitoring the ganglion cyst for any changes and managing back pain with supportive measures, especially during cold, damp weather. Patient Instructions - Continue taking insulin and Jardiance as prescribed. - Use naproxen for joint pain when necessary. - Attend weekly therapy sessions for mental health support. - Monitor the ganglion cyst for any changes. - Manage back pain with supportive care, especially in cold, damp weather. Medications: Refilled insulin degludec 21 units (0.105 mL) subcut BEDTIME 9.45 mL 1RF 90 days
[2025-07-31 08:48] VITALS: BP 130/68; PULSE 54; TEMP 36.2; O2SAT 98; BMI 30.3
--- OUTSIDE RECORDS SUMMARY | 2025-07-31 09:29 | XMS_ITS | Clinical Summary ---
Author Organization [facility] ity Address [address] [place] [address] Care Team Providers Care Workday Consultant Name Role Phone Unavailable Primary Care Provider Unavailabl e Social History Tobacco Use Types Packs/Day Years Used Date Smoking Tobacco: Never Assessed Sex and Gender Information Value Date Recorded Sex Assigned at Not on file Legal Sex Male 2:32 PM EST Gender Identity Not on file Sexual Orientation Not on file Plan of Treatment Health Maintenance Due Date Last Done Comments Colorectal Cancer Screening: Colonoscopy 1965 DTaP,Tdap,and Td Vaccines (1 - Tdap) 1984 Hepatitis B Vaccines (1 of 3 - 19+ 3-dose series) 1984 Pneumococcal Vaccine: 50+ Ye ars (1 of 1 - PCV) 2015 Zoster Vaccines (1 of 2) 2015 Cholesterol Screening (Lipid Panel) 09/14/2022 HIV Screening 09/14/2022 Hepatitis C Screening 09/14/2022 Social Influencers of Health Screening 09/14/2022 Depression Screening 10/16/2024 COVID-19 Vaccine (1 - 2023-2 5 season) 2025 Influenza Vaccine (#1) 2025 RSV Immunization Adult [...]
--- OUTSIDE RECORDS SUMMARY | 2025-07-31 09:29 | XMS_ITS | Clinical Summary ---
Author Organization [employer] Address [address] [place] [address] Care Team Providers Care Medical Staff Specialist Name Role Phone Unavailable Primary Care [...] patient's age to complete this topic Insurance [facility] ST[facility]
--- OUTSIDE RECORDS SUMMARY | 2025-07-31 09:29 | XMS_ITS | Encounter Summary ---
Author Organization [employer] Address [address] [place] [address] Care Team Providers Care Assistant Program Director Name Role Phone Unavailable Primary Care Provider Unavailabl e Encounter Details Date Type Department Care Team (Late st Contact Info) Description 11/15/2024 Telephone [facility] [address] [place], [place] [phone] Sravani Blood, OD [address] [place], [place] [id number] Social History Tobacco Use Types Packs/Day Years [...] 11/15/2024 9:44 AM EST Patient came to last picker glasses today, he said that they are not strong enough that he sees better with the old Rx. I inform him that the only difference is a +0.25 more for distance and near. I spoke with Dr. Blood and she check the patient Rx and said that is the patient Rx that he Brought from his [facility], Dr. Mayberry. She let me [...] out. Patient old Rx 05/18/2023 [facility] ADD OD: +2.50 +0.75 180 +2.25 OS: +3.25 +0.50 165 +2.25 Patient New Rx 09/03/2024 [facility] ADD OD: +2.25 +0.75 180 +2.50 OS: +3.50 +0.50 165 +2.50 documented in this encounter Plan of Treatment Not on file documented as of this encounter Visit Diagnoses Not on filedocumented in this encounter
== END 2025-07-31 09:08 | disposition home or self-care (01) ==
LOC: HO.HMCH 08:40
PROVIDERS: PCP Internal Medicine; Visit Provider Internal Medicine
DX: E11.65 Type 2 diabetes mellitus with hyperglycemia (principal)

== ENCOUNTER → 2025-07-31 08:39 | Outpatient (BNVA) | payer MEDICARE, MEDICAID, SELFPAY | PROVIDERS: PCP Internal Medicine; Visit Provider Internal Medicine | DX: E11.65 Type 2 diabetes mellitus with hyperglycemia (principal); M25.561 Pain in right knee; M25.562 Pain in left knee; M25.522 Pain in left elbow; M25.521 Pain in right elbow; M25.532 Pain in left wrist; M25.531 Pain in right wrist; F32.A Depression, unspecified; M54.9 Dorsalgia, unspecified; Z79.4 Long term (current) use of insulin | CPT/HCPCS: 96127; 99212 ==